=== PATIENT | male | born 1955 | race Caucasian/White ===

== ENCOUNTER 2018-11-12 16:22 | Inpatient (IN) | payer OTHER ==
--- NOTE | 2018-11-12 17:06 | ED ---
Abdominal Pain/Male - HPI Summary HPI Summary: Pt is a 63 y/o M presenting to the ED with a chief complaint of abd pain onset 2 days ago. Pt reports diarrhea, vomiting, and nausea. 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 He also has had to be hospitalized in the past due to his blood pressure crashing. - History of Current Complaint Chief Complaint: EDNauseaVomitDiarrh Stated Complaint: N/V/D Time Seen by Provider: 11/12/18 16:57 Hx Obtained From: Patient Onset/Duration: Sudden Onset, Lasting Days, Still Present Timing: Constant, Lasting Days Severity Initially: Mild Severity Currently: None Pain Intensity: 0 Pain Scale Used: 0-10 Numeric Location: Epigastric Radiates: No Character: Other: - bloating Aggravating Factor(s): Nothing Alleviating Factor(s): Nothing Associated Signs And Symptoms: Positive: Nausea, Vomiting, Diarrhea, Other - low BP - Allergies/Home Medications Allergies/Adverse Reactions: Allergies Allergy/AdvReac Type Severity Reaction Status Date / Time No Known Allergies Allergy Verified 11/12/18 16:31 Home Medications: Home Medications Aspirin [Aspirin EC] 81 mg PO DAILY 11/12/18 [History Confirmed 11/12/18] Atorvastatin* [Lipitor 80 MG*] 80 mg PO BEDTIME 11/12/18 [History Confirmed ] Carvedilol [Coreg] 12.5 mg PO BID 11/12/18 [History Confirmed 11/12/18] Lisinopril 10 mg PO DAILY 11/12/18 [History Confirmed 11/12/18] Loratadine 10 mg PO BEDTIME 11/12/18 [History Confirmed 11/12/18] Pantoprazole TAB * [Protonix TAB*] 40 mg PO DAILY 11/12/18 [History Confirmed ] Spironolactone 25 mg PO DAILY 11/12/18 [History Confirmed 11/12/18] PMH/Surg Hx/FS Hx/Imm Hx Previously Healthy: No Cardiovascular History: Reports: Hx Myocardial Infarction - two History: Reports: Other Problems/Disorders - previous single nephrectomy Infectious Disease History: No Infectious Disease History: Denies: Traveled Outside the [place] in Last 30 Days - Family History Known Family History: Negative: Respiratory Disease - Social History Lives: With Family Hx Substance Use: No Review of Systems Negative: Fever Positive: Abdominal Pain, Vomiting, Diarrhea, Nausea, Other - bloating All Other Systems Reviewed And Are Negative: Yes Physical Exam - Summary Physical Exam Summary: Appearance: The patient is well-nourished in no acute distress and in no acute pain. Pt is afebrile. Skin: The skin is warm and dry and skin color reflects adequate perfusion HEENT: The head is normocephalic and atraumatic. The pupils are equal and reactive. The conjunctivae are clear and without drainage. Nares are patent and without drainage. Mouth reveals dry mucous membranes and the throat is without erythema and exudate. The external ears are intact. The ear canals are patent and without drainage. The tympanic membranes are intact. Neck: The neck is supple with full range of motion and non-tender. There are no carotid bruits. There is no neck vein distension. Respiratory: Chest is non-tender. Lungs are clear to auscultation and breath sounds are symmetrical and equal. Cardiovascular: Heart is regular rate and rhythm. There is no murmur or rub auscultated. There is no peripheral edema and pulses are symmetrical and equal. Abdomen: The abdomen is soft , distenting, and non-tender. There are high pitched bowel sounds heard in all four quadrants and there is no organomegaly palpated. Musculoskeletal: There is no back tenderness noted. Extremities are non-tender with full range of motion. There is good capillary refill. There is no peripheral edema or calf tenderness elicited. Neurological: Patient is alert and oriented to person, place and time. The patient has symmetrical motor strength in all four extremities. Cranial nerves are grossly intact. Deep tendon reflexes are symmetrical and equal in all four extremities. Psychiatric: The patient has an appropriate affect and does not exhibit any anxiety or depression. Triage Information Reviewed: Yes Vital Signs On Initial Exam: Initial Vitals Temp Pulse Resp BP Pulse Ox 96.2 F 106 22 73/53 96 11/12/18 16:23 11/12/18 16:23 11/12/18 16:23 11/12/18 16:23 11/12/18 16:23 Vital Signs Reviewed: Yes Diagnostics - Vital Signs Vital Signs Temp Pulse Resp BP Pulse Ox 11/12/18 16:23 96.2 F 106 22 73/53 96 - Laboratory Result Diagrams: 11/12/18 17:27 11/12/18 17:27 Lab Statement: Any lab studies that have been ordered have been reviewed, and results considered in the medical decision making process. Abdominal Pain Fem Course/Dx - Course Course Of Treatment: Mr. Prado was brought into the emergency department hypotensive. He has had gastroenteritis symptoms for a couple of days with vomiting and diarrhea. He was placed on a monitor, IV was initiated and he was given fluids. This did not help his blood pressure much and his labs returned showing acute renal insufficiency. He states that this happened to him once previously and he responded to hospitalization and IV fluids. He specifically states that his creatinine normally runs in the ones and that it went up to the 4 hours during that episode. He has one kidney having had one removed when he was quite young. The hospice were contacted for admission and rehydration. - Diagnoses Provider Diagnoses: Acute renal failure - Critical Care Time Critical Care Time: 30-74 min Discharge - Sign-Out/Discharge Documenting (check all that apply): Patient Departure - admit - Discharge Plan Condition: Stable Disposition: ADMITTED TO [facility] Referrals: [facility] [Outside] - Billing Disposition and Condition Condition: STABLE Disposition: Admitted to [facility] - Attestation Statements Document Initiated by Scribe: Yes Documenting Scribe: Maryann Greco Provider For Whom Sakshi is Documenting (Include Credential): Beto Borjas MD. Scribe Attestation: Maryann Ortiz, scribed for Beto Borjas MD. on 11/12/18 at 1852. Scribe Documentation Reviewed: Yes Provider Attestation: The documentation as recorded by the Maryann scherer accurately reflects the service I personally performed and the decisions made by me, Beto Borjas MD. Status of Scribe Document: Viewed Consult Consult: 1800 - Spoke with Dr. Sewell about the pt's condition who will be accepting the pt to the hospital for further testing and evaluation.
[2018-11-12] MEDS ORDERED: NS 0.9% 1000 ML* 1,000 ML IV ONE ×2 (17:10→18:13)
[2018-11-12] MEDS ORDERED: Ondansetron INJ* 2 MG/ML VIAL IV ONE (17:26)
[2018-11-12 17:35] LABS: Hematocrit 43 % (42-52); Hemoglobin 14.5 g/dl (14.0-18.0); Mean Corpuscular HGB Conc 34 g/dl (31-36); Mean Corpuscular Hemoglobin 29 pg (27-31); Mean Corpuscular Volume 86 fL (80-94); Red Blood Count 4.98 10^6/ul (4.00-5.40); Red Cell Distribution Width 15 % (10.5-15); White Blood Count 10.1 10^3/ul (3.5-10.8)
[2018-11-12 17:52] LABS: ALT 34 U/L (7-52); AST 29 U/L (13-39); Albumin 4.8 g/dL (3.2-5.2); Albumin/Globulin Ratio 1.4 (1-3); Alkaline Phosphatase 107 U/L (34-104); Anion Gap 13 mmol/L (2-11); BUN/Creatinine Ratio 14.1 (8-20); Blood Urea Nitrogen 66 mg/dL (6-24); C Reactive Protein 9.83 mg/L (<8.01); CO2 Carbon Dioxide 17 mmol/L (22-32); Calcium 8.7 mg/dL (8.6-10.3); Chloride 100 mmol/L (101-111); EGFR African American 15.4 (>60); EGFR Non-African American 12.8 (>60); Globulin 3.4 g/dL (2-4); Glucose 121 mg/dL (70-100); Potassium 3.9 mmol/L (3.5-5.0); Sodium 130 mmol/L (135-145); Total Protein 8.2 g/dL (6.4-8.9)
[2018-11-12 17:53] LABS: Troponin I 0.01 ng/mL (<0.04)
[2018-11-12 17:56] LABS: ABS Basophils 0 10^3/ul (0-0.2); ABS Eosinophils 0.2 10^3/ul (0-0.6); ABS Lymphocytes 1.4 10^3/ul (1.0-4.8); ABS Monocytes 1.6 10^3/ul (0-0.8); ABS Neutrophils 6.9 10^3/ul (1.5-7.7); ABS Nucleated RBC 0 10^3/ul; Eosinophil % 1.8 %; Lymphocyte % 13.4 %; Nucleated Red Blood Cells % 0.1
[2018-11-12] MEDS ORDERED: Acetaminophen TAB* 325 MG PO ONE (18:35)
[2018-11-12] MEDS ORDERED: Ondansetron INJ* 2 MG/ML VIAL IV PRN (19:25)
[2018-11-12] MEDS ORDERED: Acetaminophen TAB* 325 MG PO PRN (19:25)
--- NOTE | 2018-11-12 19:27 | ADMNOTE ---
Subjective Date of Service: 11/12/18 - History and Physical Interval History: HISTORY AND PHYSICAL CHIEF COMPLAINT: Diarrhea HISTORY OF PRESENTING ILLNESS This is a 63 year old Male with history of ID, right nephrectomy at age 14, who now presents to the emergency room because of diarrhea. He reports that about 3 days ago he had a Tuna sandwich, and since then he has been having diarrhea. The diarrhea is loose, non-bloody Bowel movement. This is associated with nausea , vomiting. He is having crampy abdominal pain. He is having about 13 episodes of non-bloody loose BM a day for the past two days. He feels lightheaded, associated with chills. No fever, No chest pain, no shortness of breath. He had nephrectomy at age 14. Through this week's event, he has been making urine- but decreased quantity than baseline. In the emergency room was found to have hypotension, acute kidney injury after which my colleague was called for an admission. PAST MEDICAL HISTORY: Coronary artery disease with ID in 2006, 2013 PAST SURGICAL HISTORY Right nephrectomy at age 14 bilateral rotator cuff surgery Hernia repair undescended testicle surgery SOCIAL HISTORY Lives in [place] Does not smoke No alcohol use FAMILY HISTORY Father: due to diabetes Mother: Breast cancer Review of Systems - Measurements Intake and Output: Intake and Output Last 24 Hours 11/10/18 11/11/18 11/12/18 11/13/18 06:59 06:59 06:59 06:59 Weight 241 lb - Review of Systems Constitutional Symptoms: Negative: Fever Dermatology: Negative: Rash, Skin Lesions HEENT: Negative: Vertigo, Dental Problems Eyes: Negative: Change in Vision, Double Vision Thyroid: Negative: Sweatiness, Constipation Pulmonary: Negative: Cough, Sputum, Wheezing, Shortness of Breath Cardiology: Negative: Chest Pain, Shortness of Breath, Palpitations Gastroenterology: Positive: Abdominal Pain, Nausea, Vomiting, Diarrhea Genital - Urinary: Negative: Dysuria, Hematuria Musculoskeletal: Negative: Joint Pain, Arthritis Hematologic/Lymphatic: Negative: Anemia Neurology: Negative: Headache, Migraines, Change in Vision, Hx of Stroke\TIA Psychiatry: Negative: Depression, Anxiety Objective Active Medications: Acetaminophen (Tylenol Tab*) 650 mg PO Q6H PRN PRN Reason: FEVER/PAIN Aspirin (Aspirin Ec Tab*) 81 mg PO DAILY [facility] Atorvastatin Calcium (Lipitor*) 80 mg PO BEDTIME [facility] Heparin Sodium (Porcine) (Heparin Vial(*)) 5,000 units SUBCUT Q12HR [facility] Loratadine (Claritin Tab(Nf)) 10 mg PO BEDTIME [facility] Ondansetron HCl (Zofran Inj*) 4 mg IV Q6H PRN PRN Reason: NAUSEA Pantoprazole Sodium (Protonix Tab*) 40 mg PO DAILY [facility] Vital Signs - 8 hr 11/12/18 11/12/18 11/12/18 16:23 16:59 17:00 Temperature 96.2 F Pulse Rate 106 92 97 Respiratory 22 16 25 Rate Blood Pressure 73/53 83/51 (mmHg) O2 Sat by Pulse 96 97 97 Oximetry 11/12/18 11/12/18 11/12/18 17:01 17:38 18:00 Temperature Pulse Rate 88 78 77 Respiratory 17 13 13 Rate Blood Pressure 75/51 (mmHg) O2 Sat by Pulse 96 95 95 Oximetry 11/12/18 11/12/18 11/12/18 18:05 18:35 19:00 Temperature Pulse Rate 75 70 64 Respiratory 16 15 12 Rate Blood Pressure 68/50 78/47 (mmHg) O2 Sat by Pulse 95 96 98 Oximetry 11/12/18 19:10 Temperature Pulse Rate 67 Respiratory 14 Rate Blood Pressure 87/51 (mmHg) O2 Sat by Pulse 97 Oximetry Appearance: well developed, well nourished lying in ER stretcher not in distress Eyes: PERRLA, - - no nystagmus Ears/Nose/Mouth/Throat: - - oral mucosa is dry, no orpharyngeal erythema Neck: NL Appearance and Movements; NL JVP, Trachea Midline Respiratory: Clear to Auscultation, Clear to Percussion Cardiovascular: NL Sounds; No Murmurs; No JVD, RRR Abdominal: No Hepatosplenomegaly, - - Hyperactive bowel sounds, abdomen soft, nondistended, no tenderness.No flank tenderness Extremities: No Edema, No Clubbing, Cyanosis Skin: No Rash or Ulcers, - - poor skin turgor Neurological: Alert and Oriented x 3, NL Sensation, NL Muscle Strength and Tone Result Diagrams: 11/12/18 17:27 11/12/18 17:27 Assess/Plan/Problems-Billing Assessment: - Patient Problems (1) ARABELLA (acute kidney injury) Current Visit: Yes Status: Acute Code(s): N17.9 - ACUTE KIDNEY FAILURE, UNSPECIFIED SNOMED Code(s): 02214663 Comment: ARABELLA in patient with right nephrectomy Due to dehydration, will give IV fluids ordered CT abdomen and pelvis to check for hydronephrosis. hold lisinopril, spironolactone mildly acidotic- will monitor, if does not improve may require dialysis. (2) Nausea vomiting and diarrhea Current Visit: Yes Status: Acute Code(s): R11.2 - NAUSEA WITH VOMITING, UNSPECIFIED; R19.7 - DIARRHEA, UNSPECIFIED SNOMED Code(s): 1378496 Comment: thea gastroeneteritis. IV hydration, clear liquid diet, supportive care stool cdiff sent, stool WBC and culture ordered. (3) Hypotension Current Visit: Yes Status: Acute Comment: due to dehydration, will give IV fluids. Hold home dose antihypertensives. (4) CAD (coronary artery disease) Current Visit: Yes Status: Acute Code(s): I25.10 - ATHSCL HEART DISEASE OF [place] CORONARY ARTERY W/O ANG PCTRS SNOMED Code(s): 57664976 Comment: continue aspirin, statin hold home dose: coreg, lisinopril, spironolactone Status and Disposition: Assessment and plan discussed with patient Additional management as course progresses, per discretion of the daytime rounding hospitalist Medications/Allergies Medications: Home Medications Medication Instructions Recorded Confirmed Type Aspirin [Aspirin EC] 81 mg PO DAILY 11/12/18 11/12/18 History Atorvastatin* [Lipitor 80 MG*] 80 mg PO BEDTIME 11/12/18 11/12/18 History Carvedilol [Coreg] 12.5 mg PO BID 11/12/18 11/12/18 History Lisinopril 10 mg PO DAILY 11/12/18 11/12/18 History Loratadine 10 mg PO BEDTIME 11/12/18 11/12/18 History Pantoprazole TAB * [Protonix TAB*] 40 mg PO DAILY 11/12/18 11/12/18 History Spironolactone 25 mg PO DAILY 11/12/18 11/12/18 History Allergies/Adverse Reactions: Allergies Allergy/AdvReac Type Severity Reaction Status Date / Time No Known Allergies Allergy Verified 11/12/18 16:31
[2018-11-12] MEDS ORDERED: NS 0.9% 1000 ML* 1,000 ML IV SCH (19:30)
[2018-11-12 19:46] LABS: Urine Appearance Cloudy; Urine Bilirubin Negative (Negative); Urine Blood Negative (Negative); Urine Color Yellow; Urine Glucose Negative (Negative); Urine Ketones Negative (Negative); Urine Nitrite Negative (Negative); Urine Protein Negative (Negative); Urine Specific Gravity 1.002 (1.010-1.030); Urine Urobilinogen Negative (Negative)
[2018-11-12 21:50] LABS: BUN/Creatinine Ratio 16.2 (8-20); Calcium 7.7 mg/dL (8.6-10.3); Potassium 3.9 mmol/L (3.5-5.0)
[2018-11-12 22:45] LABS: Magnesium 1.4 mg/dL (1.9-2.7); Phosphorus 5.7 mg/dL (2.5-5.0)
[2018-11-12 22:51] LABS: Salicylate < 2.50 mg/dL (<30)
[2018-11-12] MEDS ORDERED: Sodium Bicarbonate 8.4% IV* 75 MEQ in NS 0.45% 1000 ML BAG* 1,000 ML IV SCH (23:30)
[2018-11-12] MEDS ORDERED: cefTRIAXone(*) 1 GM in NS 0.9% 50 ML* 50 ML IVPB SCH (23:30)
[2018-11-12] MEDS: Cetirizine* 10 MG TAB PO SCH (23:57)
[2018-11-12] MEDS: Atorvastatin* 80 MG TAB PO SCH (23:57)
[2018-11-12] MEDS: Heparin VIAL(*) 5000 UNITS/ML VIAL (FIVE THOUSAND) SUBCUT SCH (23:58)
--- NOTE | 2018-11-13 00:47 | PN ---
Hospitalist Progress Note Date of Service: 11/13/18 He reports no use of NSAID, he does use aspirin 81mg daily, but has not taken any extra dose, no recent changes to medications, no ingestion of anti-freeze or other unusual substances. I also spoke with Dr. Lopez, for a consultation. At this point, we will give sodium bicarbonate infusion, monitor electrolytes, currently no need for urgent dialysis. repeat blood work has been ordered for 1:00 AM.
[2018-11-13] MEDS ORDERED: Magnesium Sulfate 2 GM IV* 2 GM/50 ML BAG IVPB ONE (00:49)
[2018-11-13 01:49] LABS: Calcium 7.8 mg/dL (8.6-10.3); Chloride 105 mmol/L (101-111); Sodium 131 mmol/L (135-145)
[2018-11-13 01:51] LABS: Anion Gap 15 mmol/L (2-11); CO2 Carbon Dioxide 11 mmol/L (22-32)
[2018-11-13 01:54] LABS: BUN/Creatinine Ratio 17.7 (8-20); Blood Urea Nitrogen 72 mg/dL (6-24); EGFR African American 18.1 (>60); Glucose 86 mg/dL (70-100)
[2018-11-13] MEDS ORDERED: Sodium Bicarbonate 8.4% IV* 150 MEQ in NS 0.45% 1000 ML BAG* 1,000 ML IV SCH (02:30)
[2018-11-13 02:38] LABS: Potassium Redraw 3.7 mmol/L (3.5-5.0)
[2018-11-13] MEDS ORDERED: D5W 1000 ML BAG* 850 ML with Sodium Bicarbonate 8.4% IV* 150 MEQ IV SCH ×2 (03:00)
[2018-11-13] MEDS ORDERED: Sodium Bicarbonate 8.4% IV* 150 MEQ in D5W 1000 ML BAG* 850 ML IV SCH (03:00)
[2018-11-13] MEDS ORDERED: D5W 1000 ML BAG* 1,000 ML IV SCH (03:00)
[2018-11-13 05:46] LABS: Urine Creatinine Concentration 343.74 mg/dL
[2018-11-13 07:38] LABS: BUN/Creatinine Ratio 19.7 (8-20); EGFR African American 21.2 (>60); EGFR Non-African American 17.5 (>60); Potassium 3.2 mmol/L (3.5-5.0)
[2018-11-13] MEDS: Pantoprazole TAB * 40 MG TAB PO SCH (08:49)
[2018-11-13] MEDS: Aspirin EC TAB* 81 MG TAB.EC PO SCH (08:49)
[2018-11-13] MEDS: Heparin VIAL(*) 5000 UNITS/ML VIAL (FIVE THOUSAND) SUBCUT SCH ×2 (08:49→21:02)
[2018-11-13] MEDS ORDERED: NS 0.9% 500 ML* 500 ML IV ONE (08:58)
[2018-11-13] MEDS ORDERED: Potassium Chlor TAB* 20 MEQ TAB.ER PO STA (09:00)
[2018-11-13 09:52] LABS: Magnesium 1.4 mg/dL (1.9-2.7)
[2018-11-13] MEDS: Lactated Ringers 1000 ML Bag* 1,000 ML IV SCH (10:30)
[2018-11-13 11:08] LABS: Ur Urea Nitrogen Concentration 379 mg/dL; Urine Creatinine Concentration 61.99 mg/dL; Urine Sodium Concentration < 18 mmol/L
[2018-11-13] MEDS ORDERED: Magnesium Sulf 4 GM/100 ML IV* 4,000 MG/100 ML BAG IVPB ONE (13:30)
[2018-11-13 14:29] LABS: Urine Chloride Concentration < 22 mmol/L
--- NOTE | 2018-11-13 18:09 | PN ---
Subjective Date of Service: 11/13/18 Interval History: Pt seen and examined. Meds and labs reviewed. CC: Mentions that N/V has resolved and only had one loose BM this AM ROS: Denied [place]/dizziness, F/C, N/V, CP, SOB, increased cough, sputum production , abd pain, constipation, dysuria, myalgias, arthralgias, throat pain, and new skin lesions. The rest of the 14 point ROS are unremarkable. PHYSICAL EXAM: GEN APPEARANCE: Awake, not in acute distress HEENT: NC/AT, PERRLA, moist oral mucosa, (-) throat erythema NECK: Soft, supple, (-) cervical LAD, (-)JVD HEART: S1S2 WNL, RRR, No MRG CHEST: CTA, BL, GAE, No W/R/R ABD: Soft, ND/NT, NABS 4x Q EXT: No C/C/E SKIN: Warm to touch, good skin turgor PSYCH: No active psychosis, hallucinations, depression, SI/HI Objective Active Medications: Acetaminophen (Tylenol Tab*) 650 mg PO Q6H PRN PRN Reason: FEVER/PAIN Aspirin (Aspirin Ec Tab*) 81 mg PO DAILY [facility] Last Admin: 11/13/18 08:49 Dose: 81 mg Atorvastatin Calcium (Lipitor*) 80 mg PO BEDTIME [facility] Last Admin: 11/12/18 23:57 Dose: 80 mg Cetirizine HCl (Zyrtec*) 10 mg PO BEDTIME [facility] Last Admin: 11/12/18 23:57 Dose: 10 mg Heparin Sodium (Porcine) (Heparin Vial(*)) 5,000 units SUBCUT Q12HR [facility] Last Admin: 11/13/18 08:49 Dose: 5,000 units Ceftriaxone Sodium 1 gm/ (Sodium Chloride) 50 mls @ 200 mls/hr IVPB Q24H [facility] Last Admin: 11/12/18 23:58 Dose: 200 mls/hr Lactated Ringer's (Lactated Ringers 1000 Ml Bag*) 1,000 mls @ 100 mls/hr IV .INITIAL RATE [facility] Last Admin: 11/13/18 10:30 Dose: 100 mls/hr Ondansetron HCl (Zofran Inj*) 4 mg IV Q6H PRN PRN Reason: NAUSEA Pantoprazole Sodium (Protonix Tab*) 40 mg PO DAILY [facility] Last Admin: 11/13/18 08:49 Dose: 40 mg Vital Signs - 8 hr 11/13/18 11/13/18 11:21 15:36 Temperature 97.3 F 98.4 F Pulse Rate 79 72 Respiratory 20 20 Rate Blood Pressure 116/73 98/66 (mmHg) O2 Sat by Pulse 99 99 Oximetry Oxygen Devices in Use Now: None Result Diagrams: 11/12/18 17:27 11/13/18 07:15 Microbiology and Other Data: Microbiology 11/12/18 21:11 Stool Gross Appearance - Final Stool C. difficile DNA Amplification - Final 027 Presumptive NEGATIVE Toxigenic C.diff NEGATIVE Stool Lactoferrin - Final 11/12/18 21:11 Stool Occult Blood ([facility]) - Final Stool Assess/Plan/Problems-Billing Assessment: - Patient Problems (1) Metabolic acidosis Current Visit: Yes Status: Acute Code(s): E87.2 - ACIDOSIS SNOMED Code(s) : 88982818 Comment: #NAGMA: -Relatively normal anion gap (most sources consider 16-18 as cut off instead of 12); given this unnecessary to calculate delta-delta -My initial impression was due to diarrhea, probably secretory in addition to early renal failure causing impaired generation of ammonia -Dr. Lopez mentions while the above is true, he is concerned that the level of bicarb was so low that she did not even have contraction alkalosis -pCO2 = 1.5 (15) + 8 = 30.5 +/-2, which is close to observed pCO 2 =26; although this was at the time she was on bicarb gtt; -Will obtain Urine potassium levels to calculate for Urine Anion Gap (UAG)Dr. Lopez agrees -In addition, Dr. Lopez advised to obtain urine Magnesium and Urine K+ which has both been ordered on admission -Urine lytes pending (2) Nausea vomiting and diarrhea Current Visit: Yes Status: Acute Code(s): R11.2 - NAUSEA WITH VOMITING, UNSPECIFIED; R19.7 - DIARRHEA, UNSPECIFIED SNOMED Code(s): 9744291 Comment: -Consistent w/gastroenteritis -Pt associates this upon eating a 3-day old left-over tuna sandwhich w/locke, his mother made that she kept in the fridge -Possibility of S. aureaus vs viral gastroenteritis vs. secretory types? -(-)C. 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 Lopez (4) DVT prophylaxis Current Visit: Yes Status: Acute Code(s): JJG4386 - SNOMED Code(s): 219263388 Comment: -Continue Heparin SQq12H Status and Disposition: -For PT eval -Hospitalist colleaguesplease touch base w/Dr. Lopez; please call me if w/ questions
[2018-11-13] MEDS: Cetirizine* 10 MG TAB PO SCH (21:02)
[2018-11-13] MEDS: Atorvastatin* 80 MG TAB PO SCH (21:02)
[2018-11-14] MEDS: Lactated Ringers 1000 ML Bag* 1,000 ML IV SCH (00:24)
--- NOTE | 2018-11-14 08:15 | PN ---
Subjective Date of Service: 11/14/18 Interval History: HD # 3 on 11/14 63 yo M with PMH CAD s/p prior NE, s/p R nephrectomy distant as a child who presented with acute onsent N/V/D and found to have hypotension, ARABELLA, hypoNA, and NAGMA. Overnight no acute events. VS 124-143/59-65, afebrile, satting well on RA, HR 64 , voiding freely, notably with 2 LUOP in this hospitalization, 1 small liquid stool overnight. Labs not collected this AM, ordered for BMP This morning seen with his foster mom at bedside, he is feeling much better and eager to advance his diet. Last stool was overnight, small and soft but improving. Denies abdominal pain, current nausea, no CP, no SOB. Discussed w Dr. Lopez who feels comfortable sending home with FU in one week. Objective Active Medications: Acetaminophen (Tylenol Tab*) 650 mg PO Q6H PRN PRN Reason: FEVER/PAIN Aspirin (Aspirin Ec Tab*) 81 mg PO DAILY [facility] Last Admin: 11/13/18 08:49 Dose: 81 mg Atorvastatin Calcium (Lipitor*) 80 mg PO BEDTIME [facility] Last Admin: 11/13/18 21:02 Dose: 80 mg Cetirizine HCl (Zyrtec*) 10 mg PO BEDTIME [facility] Last Admin: 11/13/18 21:02 Dose: 10 mg Heparin Sodium (Porcine) (Heparin Vial(*)) 5,000 units SUBCUT Q12HR [facility] Last Admin: 11/13/18 21:02 Dose: 5,000 units Ondansetron HCl (Zofran Inj*) 4 mg IV Q6H PRN PRN Reason: NAUSEA Pantoprazole Sodium (Protonix Tab*) 40 mg PO DAILY [facility] Last Admin: 11/13/18 08:49 Dose: 40 mg Vital Signs - 8 hr 11/14/18 11/14/18 00:16 03:50 Temperature 97.7 F 97.4 F Pulse Rate 64 66 Respiratory 20 19 Rate Blood Pressure 143/59 124/65 (mmHg) O2 Sat by Pulse 99 98 Oximetry Oxygen Devices in Use Now: None Appearance: Pleasant man in NAD Eyes: No Scleral Icterus, PERRLA Ears/Nose/Mouth/Throat: NL Teeth, Lips, Gums, Mucous Membranes Moist Neck: NL Appearance and Movements; NL JVP Respiratory: Symmetrical Chest Expansion and Respiratory Effort, Clear to Auscultation Cardiovascular: NL Sounds; No Murmurs; No JVD, RRR Abdominal: NL Sounds; No Tenderness; No Distention Lymphatic: No Cervical Adenopathy Extremities: No Edema Skin: No Rash or Ulcers Neurological: Alert and Oriented x 3 Result Diagrams: 11/12/18 17:27 11/14/18 09:26 Microbiology and Other Data: Microbiology 11/12/18 21:11 Stool Gross Appearance - Final Stool C. difficile DNA Amplification - Final 027 Presumptive NEGATIVE Toxigenic C.diff NEGATIVE Stool Lactoferrin - Final 11/12/18 21:11 Stool Occult Blood ([facility]) - Final Stool Assess/Plan/Problems-Billing Assessment: 63 yo M with PMH CAD s/p prior NE, s/p R nephrectomy distant as a child who presented with acute onset N/V/D and found to have hypotension, ARABELLA, hypoNA, and NAGMA. Resolved with fluid resuscitation. 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 Lopez, Cr improving and stable for d/c (2) Nausea vomiting and diarrhea Current Visit: Yes Status: Acute Code(s): R11.2 - NAUSEA WITH VOMITING, UNSPECIFIED; R19.7 - DIARRHEA, UNSPECIFIED SNOMED Code(s): 2987040 Comment: -Consistent w/gastroenteritis -Pt associates this upon eating a 3-day old left-over tuna sandwhich w/locke, his mother made that she kept in the fridge -Possibility of S. aureaus vs viral gastroenteritis vs. secretory types? -(-)C. diff -(+)Fecal lactoferrin/WBC -(-)Hemoccult -Above consistent w/non-invasive pathogens along w/clinical course and rapid resolution (3) Hypotension Current Visit: Yes Status: Acute Comment: Hold home dose antihypertensives x3 days onr eturn (4) Metabolic acidosis Current Visit: Yes Status: Acute Code(s): E87.2 - ACIDOSIS SNOMED Code(s) : 10740225 Comment: -Relatively normal anion gap (most sources consider 16-18 as cut off instead of 12); given this unnecessary to calculate delta-delta -My initial impression was due to diarrhea, probably secretory in addition to early renal failure causing impaired generation of ammonia -Dr. Lopez mentions while the above is true, he is concerned that the level of bicarb was so low that she did not even have contraction alkalosis -pCO2 = 1.5 (15) + 8 = 30.5 +/-2, which is close to observed pCO 2 =26; although this was at the time she was on bicarb gtt; -In addition, Dr. Lopez advised to obtain urine Magnesium and Urine K+ which has both been ordered on admission-send out -Urine sodium < 20 (5) CAD (coronary artery disease) Current Visit: Yes Status: Acute Code(s): I25.10 - ATHSCL HEART DISEASE OF [place] CORONARY ARTERY W/O ANG PCTRS SNOMED Code(s): 45028175 Comment: continue aspirin, statin hold home dose: coreg, lisinopril, spironolactone (6) DVT prophylaxis Current Visit: Yes Status: Acute Code(s): XCL1301 - SNOMED Code(s): 290818341 Comment: -Continue Heparin SQq12H Status and Disposition: -DC to home
[2018-11-14] MEDS: Pantoprazole TAB * 40 MG TAB PO SCH (09:28)
[2018-11-14] MEDS: Heparin VIAL(*) 5000 UNITS/ML VIAL (FIVE THOUSAND) SUBCUT SCH (09:28)
[2018-11-14] MEDS: Aspirin EC TAB* 81 MG TAB.EC PO SCH (09:28)
[2018-11-14 09:45] VITALS: BP 120/64
[2018-11-14 10:21] LABS: BUN/Creatinine Ratio 20.5 (8-20); Calcium 8.5 mg/dL (8.6-10.3); EGFR African American 54.8 (>60); EGFR Non-African American 45.3 (>60); Magnesium 2.4 mg/dL (1.9-2.7); Potassium 3.5 mmol/L (3.5-5.0)
--- NOTE | 2018-11-15 01:10 | DS ---
CC: Dr. Lopez * DISCHARGE SUMMARY: DATE OF ADMISSION: 11/12/18 DATE OF DISCHARGE: 11/14/18 PRIMARY DIAGNOSES: 1. Nausea and vomiting secondary to gastroenteritis. 2. Acute kidney injury. 3. Non-anion gap metabolic acidosis. SECONDARY DIAGNOSES: 1. Coronary artery disease with history of myocardial infarction and hypertension. 2. 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 MEDICATIONS ON THE DAY OF DISCHARGE: As follows: 1. Aspirin 81 mg p.o. daily. 2. Atorvastatin 80 mg p.o. at bedtime. 3. Carvedilol 12.5 mg p.o. b.i.d. 4. Loratadine 10 mg p.o. at bedtime. 5. Pantoprazole 40 mg p.o. daily. 6. Ondansetron 4 mg p.o. q.6 hours p.r.n. for nausea. Changes to medication include the addition of p.r.n. ondansetron as well as the temporary holding of his home dose lisinopril as well as the temporary holding of home dose spironolactone. He may resume home dose lisinopril and spironolactone when his nausea and vomiting has improved. He is counseled to do so on discharge. HISTORY OF PRESENT ILLNESS AND HOSPITAL COURSE: This is a 63-year-old male with the above past medical history who presented to the emergency room with 3 days of nausea, vomiting, and diarrhea. He had had about 10 to 12 episodes of diarrhea daily for the past 2 days. He felt lightheaded with no associated fever or chills, chest pain or shortness of breath. He took his blood pressure at home and it was noted to be 80/50, so he presented to the emergency room. Of note, he did have a nephrectomy at age 14. He reports that on admission he is making urine. In the emergency room, he was found to be hypotensive to the mid 80s/50s with a normal heart rate, afebrile, sating well on room air, and his labs were notable for creatinine elevation at 4.68, sodium of 130, BUN of 66, chloride 100, bicarb of 17, glucose of 121. LFTs were normal. Lipase was normal. H and H were normal. He had a lactic acid drawn that was normal at 1.1. He had an anion gap elevated to 13 at that time. He was admitted to the hospitalist service for acute kidney injury and anion gap metabolic acidosis at that time. While on the hospital floor, his hospital course by problem is as follows: 1. Acute kidney injury. This was thought to be secondary to prerenal causes from his GI losses from his nausea and vomiting. He was given IV fluids. He was briefly placed on bicarb for his low bicarb, and he was supported with potassium and magnesium electrolyte replenishing. His creatinine improved from 4.68 to 1.56 on the day of discharge and he has been making excellent urine throughout without any complications. Dr. Lopez was consulted given his history of right partial nephrectomy and he has ordered send-away tests to determine the exact mechanism of his acid base status and response to his GI losses. 2. Nausea, vomiting, and diarrhea. This is thought to be secondary to acute gastroenteritis, either viral or food poisoning. He had negative stool testing , although positive lactoferrin. He was given Zofran and loperamide and treated supportively. His symptoms resolved rapidly. Within the first 48 hours of his hospitalization, he advanced his diet to tolerating a regular diet on the day of discharge and had no further problems. 3. His anion gap and then non-anion gap metabolic acidosis. His hospital course was complicated by low carbon dioxide as low as 11. As noted, Dr. Lopez was consulted who ordered send off urine tests to determine whether there was a RTA involved with ongoing GI losses and will follow up with the patient as an outpatient. The patient is instructed to make appointment with Dr. Lopez in a week to allow him for urine send off test to return. His acidosis has largely resolved on the day of discharge. 4. History of hypertension. The patient has home medications carvedilol, spironolactone, and lisinopril. His spironolactone and lisinopril are held on the day of discharge until he is able to p.o. normally and his carvedilol was restarted. He has no problems with hypertension. 5. History of CAD. He is maintained on his aspirin, statin, and was restarted on his beta keren on discharge. There are no other active problems managed during this hospitalization. PHYSICAL EXAMINATION ON THE DAY OF DISCHARGE: His vital signs on the day of discharge: His blood pressure is 124/65, his heart rate is 66, he is satting 98 % on room air, his respiration rate is in the mid teens, he is afebrile. He is a well-appearing man, lying in bed, in no acute distress. He has moist mucous membranes. His lungs are clear to auscultation bilaterally. His heart rate is regular rate and rhythm with no murmurs, rubs, or gallops. His belly is soft, nontender, and nondistended with normoactive bowel sounds. He has no edema. No cervical lymphadenopathy. He is alert and oriented x3. DIAGNOSTIC STUDIES/LAB DATA: His labs on day of discharge are notable for a BMP of sodium 139, potassium 3.5, chloride 114, bicarb 17, BUN 32, and creatinine 1.56. CBC was done prior on 11/13/18 which was within normal limits. Micro done during this hospitalization was notable for a negative C. diff, a negative shiga toxin, a negative stool culture, and a positive stool lactoferrin, and negative fecal occult. Imaging done in this hospitalization was notable for a CT abdomen and pelvis which was done on 11/12/18 which showed status post right nephrectomy, normal left kidney, no hydronephrosis. He has mild enlargement of the prostate which is an incidental finding and he has gallstones that are noted, calcified, in the gallbladder with no evidence of cholecystitis. REVIEW OF SYSTEMS: Review of systems was done on the day of discharge was fully negative. The patient denies chest pain, shortness of breath, headaches, nausea, or vomiting. Last bowel movement was the day before discharge, was noted to be soft, not liquid diarrhea. No musculoskeletal pain. No rashes. TIME SPENT: Thirty-five minutes were spent in the planning of this discharge with over half of that spent at the bedside counselling the patient and his family, whom he will return home with. They have no further questions. They understand the followup plan which is to follow up with Dr. Lopez as the patient did not have consistent primary care doctor. This discharge summary will be CC'd to Dr. Lopez as well as a referral will be made to a primary care provider by our case management team. He is to follow up on postdischarge: 1. ARABELLA. We will repeat BMP to ensure that creatinine approaches baseline which was normal on the day of discharge. It was 1.5 down from 4.68, has been trending nicely. 2. Hypotension. When the patient is tolerating normal diet and feeling back to normal, he was instructed to restart lisinopril and spironolactone. Please ensure that the patient has stable electrolytes in the presence of doing so and ensure that his home blood pressure medications are restarted at a reasonable time. There are no other active issues managed in this hospitalization and no further followup items. Please do not hesitate to contact us if there are questions in the care of this patient. [id number]/[facility] #: [id number] RADHA
--- NOTE | 2018-11-15 13:42 | CONS ---
NEPHROLOGY CONSULTATION: DATE OF CONSULT: ADDENDUM: His anion gap has been minimally elevated during the course of this admission. His maximum anion gap was 13 on admission and got as high as 15 and has come down with buffering. None of the usual culprits for increased anion gap acidosis seemed very compelling. His lactic acid was 1.1. He had no ketones in his urine. His salicylate level was less than 2.5. We have no history of alcohol intake or ethylene glycol intake. While again renal insufficiency would be a usual culprit with regard to an increased anion gap acidosis, his time course is a little short for that. At the present time, his acidosis is being buffered. His potassium abnormality is being corrected. He has had magnesium replaced. I suggest that it would be reasonable to go ahead and let him go home and I will see him as an outpatient to continue the investigation once additional laboratory evaluations are back. I did discuss the case with Dr. Mead and Dr. Jaime. [id number]/[facility] #: [id number] [facility]
--- NOTE | 2018-11-15 15:55 | CONS ---
ADDENDUM NOW INCLUDED ON THIS REPORT CC: Dr. Quiñones, [facility] * NEPHROLOGY CONSULTATION: DATE OF CONSULT: 11/15/18 HISTORY OF PRESENT ILLNESS: I had originally seen Mr. Prado on 11/13/18, but had delayed this dictation in anticipation of some of the additional laboratory tests coming back. Mr. 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 He has a history of myocardial infarction x2 and has undergone balloon angioplasty and stent placement. He has a history of gallstones in the past. He has had about a 3 to 4- day history of diarrhea. He had some severe vomiting at the initiation of this illness, but none since. He had some nausea continuing. He has had some anorexia. He had no orthostatic dizziness, but he did feel a little lightheaded most of the time, but position was not a component. He had no chest pain, no shortness of breath. He did have mid epigastric abdominal pain near the initiation of this illness. He had no dysuria, frequency, or urgency. PAST SURGICAL HISTORY: He has had bilateral rotator cuff surgery. 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 MEDICATIONS: Admission medications included: 1. Aspirin 81 mg daily. 2. Atorvastatin 80 mg daily. 3. Carvedilol 12.5 mg b.i.d. 4. Lisinopril 10 mg daily. 5. Loratadine 10 mg daily. 6. Pantoprazole 40 mg daily. 7. Spironolactone 25 mg daily. Of significance, this was started by his erp technical lead around the time of one of his myocardial infarctions. He does not recognize that it was used for hypokalemia. SOCIAL HISTORY: He does not use tobacco or alcohol. REVIEW OF SYSTEMS: Significant for peptic ulcer disease. There are no visual disturbances. No hearing problems. No swallowing difficulties. No arthropathies. PHYSICAL EXAM: He is a well-developed, well-nourished white gentleman. At the time that I saw him, his blood pressure was 143/59 with a pulse of 64, respirations of 20. On HEENT, he is anicteric. His extraocular muscles are intact. His mucous membranes are moist. There was no jugular venous distention. His chest was clear. The heart revealed a regular rhythm without murmurs. The abdomen was significant and there was no right upper quadrant tenderness. I could not feel his liver margin. There was no other abdominal tenderness. No organomegaly. Bones, joints, extremities revealed no cyanosis, clubbing, or edema. DIAGNOSTIC STUDIES/LAB DATA: A review of his laboratory studies reveals a white count of 10.1, hemoglobin of 14.5. A pH of 7.33, pCO2 26, pO2 of 89. Sodium was 130 on admission with a potassium of 3.9, chloride 100, total CO2 17 , creatinine 4.68 with a BUN of 66. Bilirubin of 1.8. During his hospitalization, his creatinine fell to 3.2. At that time, his acidosis had worsened to a total CO2 of 15. His magnesium level was initially suppressed at 1.4. His did receive magnesium supplementation. Urinalysis at the time of admission was essentially unremarkable with a specific gravity of 1.02, urinary sodium concentration of 18, urinary creatinine of 61.99. I am awaiting urinary potassium and magnesium levels. DISCUSSION: Clearly, he has an episode of acute renal insufficiency on the basis of prerenal state secondary to his diarrhea. It is little perplexing about the nature of his acidosis. Ordinarily, one would expect in this setting to have a contraction alkalosis, not an acidosis. It is possible under certain circumstances to lose bicarbonate through the diarrheal source, but this usually occurs where there are major losses from either biliary secretions or pancreatic secretions or perhaps even villous adenoma. Unfortunately, we do not have previous electrolytes to evaluate. He has had a colonoscopy a few years ago, which revealed some colonic polyps. One would have thought that if there was a villous adenoma, some evidence would have been found at that time. There is some question as to whether or not his renal insufficiency could have produced this level of acidosis because of changes in distal ammonia production. I am a little reluctant to accept that as his bicarbonate level at one point got down to as low as 11; obviously, there would be the question of one of the renal tubular acidoses. It is unlikely to be a type 4 renal tubular acidosis as he was hypokalemic instead of hyperkalemic and additionally distal renal tubular acidosis is excluded by his urinary pH of 5. It would be a little unusual to make the diagnosis of a proximal renal tubular acidosis at the age of 63. ADDENDUM: His anion gap has been minimally elevated during the course of this admission. His maximum anion gap was 13 on admission and got as high as 15 and has come down with buffering. None of the usual culprits for increased anion gap acidosis seemed very compelling. His lactic acid was 1.1. He had no ketones in his urine. His salicylate level was less than 2.5. We have no history of alcohol intake or ethylene glycol intake. While again renal insufficiency would be a usual culprit with regard to an increased anion gap acidosis, his time course is a little short for that. At the present time, his acidosis is being buffered. His potassium abnormality is being corrected. He has had magnesium replaced. I suggest that it would be reasonable to go ahead and let him go home and I will see him as an outpatient to continue the investigation once additional laboratory evaluations are back. I did discuss the case with Dr. Mead and Dr. Jaime. [id number]/[facility] #: [id number] Ever- [id number]/[facility] #: [id number] RADHA
== END 2018-11-14 15:30 | disposition home or self-care (01) | DRG 249 ==
LOC: ED 16:22 → MED 19:58
PROVIDERS: ADMIT Internal Medicine; ATTEND Internal Medicine
DX: K52.9 Noninfective gastroenteritis and colitis, unspecified (principal); N17.9 Acute kidney failure, unspecified; E87.2 Acidosis; E87.1 Hypo-osmolality and hyponatremia; I95.9 Hypotension, unspecified; E83.42 Hypomagnesemia; I11.9 Hypertensive heart disease without heart failure; E86.0 Dehydration; I25.10 Atherosclerotic heart disease of native coronary artery without angina pectoris; I25.2 Old myocardial infarction; Z90.5 Acquired absence of kidney; Z83.3 Family history of diabetes mellitus; Z80.3 Family history of malignant neoplasm of breast; Z79.01 Long term (current) use of anticoagulants; Z79.1 Long term (current) use of non-steroidal anti-inflammatories (NSAID); Z79.82 Long term (current) use of aspirin; Z79.899 Other long term (current) drug therapy; Z95.5 Presence of coronary angioplasty implant and graft; K27.9 Peptic ulcer, site unspecified, unspecified as acute or chronic, without hemorrhage or perforation
CPT/HCPCS: 36415; 36600; 71046; 74176; 80048; 80053; 80329; 81003; 82272; 82436; 82570; 82803; 83605; 83630; 83690; 83735; 83930; 83935; 84100; 84300; 84484; 84540; 85025; 86140; 87045; 87046; 87077; 87493; 87899; 90686; 99284; A9270-GY; G0480; J0696; J1644; J2405; J3475; J7060

== ENCOUNTER 2020-02-02 06:37 | Emergency (ER) | payer OTHER ==
--- NOTE | 2020-02-02 06:44 | ED ---
Respiratory - HPI Summary HPI Summary: 65 y/o M brought in by EMS to [facility] c/o worsening shortness of breath for a couple weeks. Patient is not a good historian. He reports shortness of breath worse with exertion for 2 weeks. It is not particularly worse today than before. His mother called ambulance because she was worried. No syncope, chest pain, nausea, vomiting. Hx coronary disease. Hx MS x2, last time in 2014. No hx heart rhythm problems or pacemaker. - History of Current Complaint Stated Complaint: SOB PER EMT Hx Obtained From: Patient Onset/Duration: Lasting Weeks - 2, Still Present Timing: Constant Aggravating Factor(s): Exertion Alleviating Factor(s): Nothing Associated Signs and Symptoms: Negative - syncope, chest pain, nausea, vomiting - Allergy/Home Medications Allergies/Adverse Reactions: Allergies Allergy/AdvReac Type Severity Reaction Status Date / Time No Known Allergies Allergy Verified 11/12/18 16:31 Home Medications: Home Medications Aspirin [Aspirin EC] 81 mg PO DAILY 11/12/18 [History Confirmed 02/02/20] Carvedilol [Coreg] 25 mg PO BID 11/12/18 [History Confirmed 02/02/20] Loratadine 10 mg PO DAILY 11/12/18 [History Confirmed 02/02/20] Pantoprazole TAB * [Protonix TAB*] 40 mg PO DAILY 11/12/18 [History Confirmed ] Diclofenac 1% GEL (NF) [Voltaren 1% GEL (NF)] 1 applic TOPICAL BID PRN 02/02/20 [History Confirmed 02/02/20] Escitalopram * [Lexapro 10 mg (NF)] 10 mg PO DAILY 02/02/20 [History Confirmed 02/02/20] Ezetimibe TAB* [Zetia TAB*] 10 mg PO DAILY 02/02/20 [History Confirmed 02/02/20] Lisinopril TAB* [Prinivil TAB*] 10 mg PO DAILY 02/02/20 [History Confirmed 02/01] Nitroglycerin TAB 0.4 MG* 0.4 mg SL Q5M PRN 02/02/20 [History Confirmed 02/02/20 ] [place]-3 Fatty Acids (Nf) [Fish Oil (NF)] 1,000 mg PO DAILY 02/02/20 [History Confirmed 02/02/20] Rosuvastatin Calcium [Crestor] 40 mg PO DAILY 02/02/20 [History Confirmed ] Spironolactone TAB* [Aldactone TAB*] 25 mg PO DAILY 02/02/20 [History Confirmed 02/02/20] Ticagrelor* [Brilinta*] 90 mg PO BID 02/02/20 [History Confirmed 02/02/20] PMH/Surg Hx/FS Hx/Imm Hx Cardiovascular History: Reports: Hx Hypertension, Hx Myocardial Infarction - two History: Reports: Other Problems/Disorders - previous single nephrectomy Sensory History: Reports: Hx Contacts or Glasses Opthamlomology History: Reports: Hx Contacts or Glasses Neurological History: Denies: Hx Headaches, Hx Transient Ischemic Attacks (TIA) Psychiatric History: Denies: Hx Anxiety, Hx Depression - Surgical History Surgical History: Yes Surgery Procedure, Year, and Place: right nephrectomy - Family History Known Family History: Negative: Respiratory Disease - Social History Alcohol Use: Occasionally Hx Substance Use: No Substance Use Type: Reports: None Hx Tobacco Use: Yes Smoking Status (MU): Former Smoker Review of Systems Negative: Chest Pain Positive: Shortness Of Breath Negative: Vomiting, Nausea Negative: Syncope All Other Systems Reviewed And Are Negative: Yes Physical Exam - Summary Physical Exam Summary: Appearance: Pale and slightly diaphoretic male in no respiratory distress. Noted to be hypotensive and bradycardic. Skin: Warm, dry, no obvious rash Eyes: sclera anicteric, no conjunctival pallor HENT: mucous membranes moist, pharynx appears normal Neck: Supple, nontender Respiratory: Clear to auscultation, no signs of respiratory distress Cardiovascular: Normal S1, S2. No murmurs. Normal distal pulses in tibial and radial bilaterally. Noted to be bradycardic. Abdomen: Soft, nontender, normal active bowel sounds present Musculoskeletal: Normal, Strength/ROM Intact Neurological: A&Ox3, awake and alert, mentation is normal, speech is fluent and appropriate Psychiatric: affect is normal, does not appear anxious or depressed Triage Information Reviewed: Yes Vital Signs Reviewed: Yes Procedures - Sedation Patient Received Moderate/Deep Sedation with Procedure: No Diagnostics - Laboratory Result Diagrams: 02/02/20 06:45 02/02/20 06:45 Lab Statement: Any lab studies that have been ordered have been reviewed, and results considered in the medical decision making process. Re-Evaluation - Re-Evaluation First Eval Re-Evaluation Time: 06:41 - Cancel STEMI Comment: Dr. Romero discussed the care of the patient with Dr. Blanco, who agreed to come into the ED to evaluate. Second Eval Comment: Dr. Romero discussed the care of the patient with Dr. Delcid from [facility]. Dr. Delcid agreed to accept the patient as a transfer. Disposition - Course Course Of Treatment: 65 y/o M with hx coronary disease and MS x2 brought in by EMS c/o shortness of breath worse with exertion for 2 weeks. No hx heart rhythm problems or pacemaker. Physical exam reveals a pale and slightly diaphoretic male in no respiratory distress. Noted to be hypotensive and bradycardic. Bedside screening US did not show any obvious abnormalities. No sign of pulmonary edema or infiltrates. Patient given atropine. Patient signed out to Dr. Romero upon shift change pending labs, imaging, disposition. - Diagnoses Provider Diagnoses: Hypotension, Hyperkalemia, Acute renal failure, Acidemia, SOB (shortness of breath), Junctional bradycardia, Hyponatremia During the Visit The Following Alert/Code Occurred: STEMI - 0635 called by EMS in the field - Critical Care Time Critical Care Time: 30-74 min - 30 minutes CCT Critical Care Statement: Critical care time is provided exclusive of any time spent performing procedures. Discharge ED - Sign-Out/Discharge Documenting (check all that apply): Sign-Out Patient Signing out patient TO: Emory Romero - Discharge Plan Condition: Critical Disposition: TRANS HIGHER LVL OF CARE FAC Referrals: Orestes Quiñones DO [Primary Care Provider] - - Billing Disposition and Condition Condition: CRITICAL Disposition: Trans Higher Lvl of Care Fac - Attestation Statements Document Initiated by Scribe: Yes Documenting Scribe: Adamaris Call Provider For Whom Ikeibe is Documenting (Include Credential): Beto Hyde MD Scribe Attestation: Adamaris Ortiz, scribed for Beto Hyde MD on 02/04/20 at 0327. Scribe Documentation Reviewed: Yes Provider Attestation: The documentation as recorded by the Adamaris scherer accurately reflects the service I personally performed and the decisions made by me, Beto Hyde MD Status of Scribe Document: Viewed
--- OUTSIDE RECORDS SUMMARY | 2020-02-02 06:48 | XMS REPORT | Summary of Care ---
:1955 Author Organization [facility] Address [address] [facility] [place] [address] Care Team Providers Name Role Phone Zach Ha Primary Care Provider Reason for Visit Reason Comments Follow Up pt states he has Diarrhea back today, some SOB this morning after "running around ". Encounter Details Date Type Department Care Team Description 01/27/2020 Office Visit [facility] Linda Chavez, TERMINAL CLERK-Ryley Diarrhea, unspecified type (Primary Dx); Practice [address] Dyspnea, unspecified type; [address] [place] [address] [place] [address] [phone] Allergies No Known Allergiesdocumented as of this encounter (statuses as of 01/27/2020) Medications Medication Sig Dispensed Refills Start Date End Date Status nitroglycerin (NITROSTAT) Place 1 Tab 25 Tab 2 01/13/2018 Active 0.4 MG Sublingual SL Tab under tongue EVERY FIVE MINUTES NEEDED for chest pain. Cascade-3 Fatty Acids (FISH Take by mouth. 0 Active OIL) 1000 MG Oral Cap diclofenac (VOLTAREN) 1 % 2 g by Topical 2 Tube 0 07/27/2018 Active Transdermal route TWO TIMES GelIndications: Left DAILY NEEDED wrist pain (wrist pain). Aspirin (ASPIR-LOW) 81 MG Take 1 Tab by 30 Tab 5 09/01/2018 Active Oral Tab EC mouth DAILY. lisinopril (PRINIVIL, Take 1 tablet 90 Tab 3 07/05/2019 Active ZESTRIL) 10 MG Oral by mouth daily. TabIndications: Uncontrolled hypertension carvedilol (COREG) 25 MG Take 1 Tab by 180 Tab 1 07/06/2019 Active Oral TabIndications: mouth TWO TIMES Hypertension, unspecified DAILY WITH type MEALS. pantoprazole (PROTONIX) Take 1 tablet 90 Tab 1 08/23/2019 Active 40 MG Oral Tab by mouth daily. ECIndications: Gastroesophageal reflux disease, esophagitis presence not specified loratadine Take 1 tablet 90 Tab 1 08/23/2019 Active (CLARITIN,ALAVERT) 10 MG by mouth daily. Oral Tab ticagrelor (BRILINTA) 90 Take 1 Tab by 60 Tab 11 09/12/2019 Active MG Oral Tab mouth TWICE DAILY. Rosuvastatin Calcium Take 1 Tab by 30 Tab 5 10/26/2019 Active (CRESTOR) 40 MG Oral Tab mouth DAILY. ezetimibe (ZETIA) 10 MG Take 1 Tab by 30 Tab 5 10/26/2019 Active Oral Tab mouth DAILY. escitalopram (LEXAPRO) 10 Take 1 Tab by 180 Tab 0 11/22/2019 Active MG Oral TabIndications: mouth DAILY. Anxiety and depression spironolactone Take 1 Tab by 30 Tab 4 12/22/2019 Active (ALDACTONE) 25 MG Oral mouth DAILY. 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 was told probably was never working since Undescended right testicle Overview: was brought down by surgery. age 13 Heart attack Overview: 3 stents in rca ARABELLA (acute kidney injury) Overview: hypot[facility] induced at [facility] in[facility] 2017 Prior history of vaccination for Streptococcus pneumoniae History of colonoscopy Overview: february 2016. outside [place]. recommended 3 year follow up in february 2019. documented as of this encounter (statuses as of 01/27/2020) Immunizations Name Administration Dates Next Due Influenza (IM) Preservative Free 08/05/2019, 11/16/2017 TDAP Vaccine 11/16/2017 documented as of this encounter Social History Tobacco Use Types Packs/Day Years Used Date Former Smoker Quit: 11/03/1981 Smokeless Tobacco: Never Used Alcohol Use Drinks/Week oz/Week Comments No Social Isolation Answer Date Recorded In a typical week, how many times do you More than three times a week 2019 talk on the phone with family, friends, or neighbors? How often do you get together with friends More than three times a week 12/25 or relatives? How often do you attend hinduism or More than 4 times per year 12/26/2019 pentecostal services? Do you belong to any clubs or No 12/26/2019 organizations such as hinduism groups, unions, [employer] or athletic groups, or school groups? How often do you attend meetings of the Never 12/26/2019 clubs or organizations you belong to? Are you now , , , 12/26/2019 , never or living with a partner? Physical Activity Answer Date Recorded On average, how many days per week do you engage in moderate to 0 days 2019 strenuous exercise (like walking fast, running, jogging, dancing, swimming, biking, or other activities that cause a light or heavy sweat)? On average, how many minutes do you engage in exercise at this 0 min 2019 level? Stress Answer Date Recorded Do you feel stress - tense, restless, nervous, or anxious, Not at all 2019 or unable to sleep at night because your mind is troubled all the time - these days? Financial Resource Strain Answer Date Recorded How hard is it for you to pay for the very basics like Not hard at all 2019 food, housing, medical care, and heating? Intimate Partner Violence Answer Date Recorded Within the last year, have you been afraid of your partner or No 12/26/2019 ex-partner? Within the last year, have you been humiliated or emotionally No 12/26/2019 abused in other ways by your partner or ex-partner? Within the last year, have you been kicked, hit, slapped, or No 12/26/2019 otherwise physically hurt by your partner or ex-partner? Within the last year, have you been raped or forced to have any No 12/26/2019 kind of sexual activity by your partner or ex-partner? Food Insecurity Answer Date Recorded Within the past 12 months, you worried that your food would Never true 2019 run out before you got money to buy more. Within the past 12 months, the food you bought just didn't Never true 2019 last and you didn't have money to get more. Transportation Needs Answer Date Recorded In the past 12 months, has lack of transportation kept you from No 12/26/2019 medical appointments or from getting medications? In the past 12 months, has lack of transportation kept you from No 12/26/2019 meetings, work, or getting things needed for daily living? Sex Assigned at Date Recorded Not on file documented as of this encounter Last Filed Vital Signs Vital Sign Reading Time Taken Comments Blood Pressure 130/82 01/27/2020 10:08 AM EDT Pulse 72 01/27/2020 10:08 AM EDT Temperature 36.3 01/27/2020 10:08 AM EDT C (97.3 F) Respiratory Rate 14 01/27/2020 10:08 AM EDT Oxygen Saturation 98% 01/27/2020 11:23 AM EDT Inhaled Oxygen Concentration - - Weight - - Height 175.3 cm (5' 9") 01/27/2020 10:08 AM EDT Body Mass Index - - documented in this encounter Progress Notes Linda Chavez FNP-C - 01/27/2020 10:00 AM EDT PATIENT: Butch Prado : 1955 DATE OF SERVICE: 01/27/2020 CHIEF COMPLAINT: Chief Complaint Patient presents with ? Follow Up pt states he has Diarrhea back today, some SOB this morning after "running around ". Subjective HISTORY OF PRESENT ILLNESS: Butch Prado is a 65-y.o. male. Complaint of loose 1x this morning Had some spagetti last night and it upset his stomach BM have been irregualr since for the last few months Was nauseous and had diarrhea for 3 days earlier in the week Denies abdominal pain Denies vomiting and nausea Denies blood in his stool Normal urination ? Complaint of shortness of breath on exertion This morning and had one episode 1 week ago He was walking up the stairs and felt short of breath that lasted for less than 1 minute Relieved with rest Denies dizziness and chest pain -no recent use of nitro Denies shortness of breath at rest and at this time Denies fever Denies edema Denies cough Able to sleep inlying down without difficulty anxiety regarding coronavirus and if his heart is strong enough to withstand illness Worries about who will take care of his mother if her gets sick Able to sleep Denies panic attacks Taking lexapro for his anxiety Past Medical History: Diagnosis Date ? ARABELLA (acute kidney injury) (HCC) hypotension induced at [facility] 2017 ? Essential (primary) hypertension ? GERD (gastroesophageal reflux disease) ? 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 was told probably was never working since ? Heart attack (HCC) 2006, 2013 3 stents in rca ? History of colonoscopy february 2016. outside [place]. recommended 3 year follow up in february 2019. ? Hyperlipidemia ? Hypotension ? Prior history of vaccination for Streptococcus pneumoniae ? Rotator cuff disorder both sides. had surgeries for both ? Undescended right testicle was brought down by surgery. age 13 Family History Problem Relation Age of Onset ? Cancer Mother ? Diabetes Father Current Outpatient Medications Medication Sig ? Aspirin (ASPIR-LOW) 81 MG Oral Tab EC Take 1 Tab by mouth DAILY. ? carvedilol (COREG) 25 MG Oral Tab Take 1 Tab by mouth TWO TIMES DAILY WITH MEALS. ? diclofenac (VOLTAREN) 1 % Transdermal Gel 2 g by Topical route TWO TIMES DAILY NEEDED (wrist pain). ? escitalopram (LEXAPRO) 10 MG Oral Tab Take 1 Tab by mouth DAILY. ? ezetimibe (ZETIA) 10 MG Oral Tab Take 1 Tab by mouth DAILY. ? lisinopril (PRINIVIL, ZESTRIL) 10 MG Oral Tab Take 1 tablet by mouth daily. ? loratadine (CLARITIN,ALAVERT) 10 MG Oral Tab Take 1 tablet by mouth daily. ? nitroglycerin (NITROSTAT) 0.4 MG Sublingual SL Tab Place 1 Tab under tongue EVERY FIVE MINUTES NEEDED for chest pain. ? Cascade-3 Fatty Acids (FISH OIL) 1000 MG Oral Cap Take by mouth. ? pantoprazole (PROTONIX) 40 MG Oral Tab EC Take 1 tablet by mouth daily. ? Rosuvastatin Calcium (CRESTOR) 40 MG Oral Tab Take 1 Tab by mouth DAILY. ? spironolactone (ALDACTONE) 25 MG Oral Tab Take 1 Tab by mouth DAILY. ? ticagrelor (BRILINTA) 90 MG Oral Tab Take 1 Tab by mouth TWICE DAILY. No current facility-administered medications for this visit. No Known Allergies Social History Socioeconomic History ? Marital status: Single Spouse name: Not on file ? Number of children: Not on file ? Years of education: Not on file ? Highest education level: Not on file Occupational History ? Not on file Social Needs ? Financial resource strain: Not hard at all ? Food insecurity Worry: Never true Inability: Never true ? Transportation needs Medical: No Non-medical: No Tobacco Use ? Smoking status: Former Smoker Last attempt to quit: 11/03/1981 Years since quittin.2 ? Smokeless tobacco: Never Used Substance and Sexual Activity ? Alcohol use: No ? Drug use: No Comment: never IV ? Sexual activity: Never Lifestyle ? Physical activity Days per week: 0 days Minutes per session: 0 min ? Stress: Not at all Relationships ? Social connections Talks on phone: More than three times a week Gets together: More than three times a week Attends pentecostal service: More than 4 times per year Active member of club or organization: No Attends meetings of clubs or organizations: Never Relationship status: ? Intimate partner violence Fear of current or ex partner: No Emotionally abused: No Physically abused: No Forced sexual activity: No Other Topics Concern ? Back Care Not Asked ? Bike Helmet Not Asked ? Blood Transfusions Not Asked ? Caffeine Concern Not Asked ? Exercise Not Asked ? Hobby Hazards Not Asked ? International Travel Not Asked ? Service Not Asked ? Occupational Exposure Not Asked ? Seat Belt Not Asked ? Self-Exams Not Asked ? Sleep Concern Not Asked ? Special Diet Not Asked ? Stress Concern Not Asked ? Weight Concern Not Asked Social History Narrative Looking for work Moved from [place], [place] In [place] worked at [employer] Helping his foster mother here 2 boys One lives in [place], the other in [place]. Has a hydifjuo-se-xlt in [place]. Currently has a fiance - 2020 REVIEW OF SYSTEMS: Review of Systems Constitutional: Negative for chills and fever. HENT: Negative for congestion and sore throat. Respiratory: Negative for cough. Cardiovascular: Negative for chest pain and palpitations. Gastrointestinal: Positive for diarrhea. Negative for abdominal pain, blood in stool, constipation, nausea and vomiting. Genitourinary: Negative for dysuria. Musculoskeletal: Negative for myalgias. Neurological: Negative for dizziness. Psychiatric/Behavioral: Negative for depression. The patient is nervous/anxious. Objective PHYSICAL EXAM: VITALS: BP 130/82 (BP Location: Left arm, Patient Position: Sitting) | Pulse 72 | Temp 97.3 F(36.3 C) | Resp 14 | Ht 5' 9" (1.753 m) | BMI 36.18 kg/m Body mass index is 36.18 kg/m. Physical Exam ASSESSMENT / IMPRESSION: ICD-9-CM ICD-10-CM 1. Diarrhea, unspecified type 787.91 R19.7 2. Dyspnea, unspecified type 786.09 R06.00 3. Anxiety 300.00 F41.9 Plan Discussed diarrhea that has resolved Recommend avoiding foods that irritate his GI system BRAT diet and fluids discussed anxiety about covid19 pandemic- discussed staying home and social distancing measures andavoiding infection. Reviewed s/s of coronavirus and when to seek testing and medical assistance Episode of shortness of breath resolved discussed possibility of cardiac rehabilitation which is hold at this time but could consider in the future. If symptoms do not improve or shortness of breat returns please return to clinic Follow-up as needed Author: SIA Dean 01/27/2020 11:18 documented in this encounter Plan of Treatment Date Type Specialty Care Team Description 04/23/2020 Office Visit Cardiology Severo Lei MD [address] [place] [address] [phone] Health Maintenance Due Date Last Done Comments CT Colonography 1955 Cologuard 1955 Colonoscopy 1955 Colorectal Cancer Screening 1955 FIT/FOBT 1955 Sigmoidoscopy 1955 PNEUMOCOCCAL 0-64 YRS (1 of 01/16/1962 1 - PPSV23) ZOSTER IMMUNIZATION SERIES 01/16/2006 (1 of 2) DEPRESSION SCREENING 07/12/2020 07/12/2019 DIABETES SCREENING 10/24/2020 10/24/2019, 09/10/2019, 08/22/2019, Additional history exists LIPID DISORDER SCREENING 10/26/2020 10/26/2019, 10/24/2019, 11/09/2017 DTaP/Tdap/Td Vaccines (2 - 11/16/2027 11/16/2017 Tdap) HEPATITIS C SCREENING Completed 12/02/2018 HIV SCREENING Completed 12/02/2018 INFLUENZA VACCINE Completed 08/05/2019, 11/16/2017 HEPATITIS A IMMUNIZATION Aged Out No longer eligible SERIES based on patient's age to complete this topic HPV IMMUNIZATION SERIES Aged Out No longer eligible based on patient's age to complete this topic MENINGOCOCCAL VACCINE IMM Aged Out No longer eligible based on patient's age to complete this topic documented as of this encounter Goals Goal Patient Goal Associated Recent Patient-Stated? Author Type Problems Progress Blood Pressure Blood Pressure 130/82 No Orestes Quiñones < 140/90 (01/27/2020 DO Ari 10:08 AM EDT) Note: This is an individualized treatment (blood pressure) goal for Butch Prado: Displayed above (on the left) is your goal for blood pressure control. Your most recent blood pressure is also shown above, on the right. You should try to achieve blood pressures that are lower than your goal listed above (on the left). Weight increase vs. 18 mo min CHF 0 (12/26/2019 2:04 PM EDT) Orestes Dooley DO (lbs) < 5 Note: This is an individualized treatment (congestive heart failure, CHF) goal for Butch Prado: Displayed above (on the right) is how many pounds you are in excess of your lowest weight over the past 18 months. Note that lower numbers are better. Excessive weight gain often indicates fluid reten tion and worsening heart failure. You should contact your doctor immediately if the above number is too high (above your goal, the number on the left). Depression screen (PHQ-9) total score < 5 Depression Orestes Dooley DO Note: This is an individualized treatment (depression) goal for Butch Prado: Displayed above is your goal for a depression screening (PHQ-9) score that would indicate good control of your depression. Weight loss vs. 18 mo Lifestyle 16 (12/26/2019 2:04 PM EDT) Orestes Dooley DO max (lbs) >= 10 Note: This is an individualized lifestyle goal for Butch Prado: Your body mass index (BMI) is more than 30. You should lose weight. A reasonable starting goal is to lose 10 pounds. Displayed above is how many pounds you have lost thus far towards your 10 pound weight loss goal. Consume a qj-htwav-jahc diet Lifestyle No Orestes Quiñones DO Note: This is an individualized lifestyle goal for Butch Prado: Please do not add additional salt to your food. Additional salt may lead to fluid retention and worsen your congestive heart failure. Keep a regular sleep schedule Lifestyle No Orestes Quiñones DO Note: This is an individualized lifestyle goal for Butch Prado: Please maintain a regular sleep schedule. This may help with some symptoms of depression. Take all prescribed medications as directed Self-management No Orestes Quiñones DO Note: This is an individualized self-management goal for Butch Prado: Please take all prescribed medications as directed. 1. Do not skip doses. If you cannot afford your medications, talk with your doctor. 2. Use a pill reminder system such as a pill box if needed. Your pharmacist can help you with this. 3. Contact your Pharmacy 5 days before your medication runs out. If you cannot take your medications for any reasons, talk with your doctor. 4. Please bring all of your medication bottles and inhalers (or a list of all your medications/inhalers) with you to every visit. Potential barriers to meeting all of your care plan goals will continue to be addressed on an ongoing basis. Check your weight daily Self-management No Orestes Quiñones DO Note: This is an individualized self-management goal for Butch Prado: Please check your weight daily. Refer to the accompanying CHF treatment goal and call your doctor immediately for further instructions on how to respond to unexpected weight gain. documented as of this encounter Implants Implanted Type Area Filenet Admin Device Shelf Model / Identifier Expiration Date Serial / Lot 2.75/40 Orsiro Stent - [id number] N/A: RCA / Implanted: Qty: 1 on 09/09/2019 by Viral Cline MD at [facility] / [id number] Orsiro Stent - [id number] N/A: RCA / Implanted: Qty: 1 on 09/09/2019 by Viral Cline MD at [facility] / [id number] documented as of this encounter Results Not on filedocumented in this encounter Visit Diagnoses Diagnosis Diarrhea, unspecified type Dyspnea, unspecified type Anxiety Anxiety state, unspecified documented in this encounter [phone] [facility] (Home) [place] [id number] documented as of this encounter Advance Directives Code Status Date Activated Date Inactivated Comments Full Code 09/09/2019 8:40 AM Does the patient have decision making capacity? Yes Order was discussed with: Patient I discussed all options and patient/surrogate requested and agreed to: Full Code
--- OUTSIDE RECORDS SUMMARY | 2020-02-02 06:48 | XMS REPORT | Summary of Care ---
:1955 Author Organization [facility] Address 1 [facility] [place] [address] Care Team Providers Name Role Phone Zach Ha Primary Care Provider Reason for Visit Reason Comments Abdominal Pain pt states 2 nights ago, after eating, he had an upset stomach. also states that a week ago he got winded going up the steps . Encounter Details Date Type Department Care Team Description 01/24/2020 Office Visit [place] Linda Jarrett, LIBRARY CLERK [employer]-[place] Diarrhea, unspecified type (Primary Dx); Practice [address] Dyspnea, unspecified type [address] [place], [place] [address] [place] [address] [phone] Allergies No Known Allergiesdocumented as of this encounter (statuses as of 01/25/2020) Medications Medication Sig Dispensed Refills Start Date End Date Status nitroglycerin (NITROSTAT) Place 1 Tab 25 Tab 2 01/13/2018 Active 0.4 MG Sublingual SL Tab under tongue EVERY FIVE MINUTES NEEDED for chest pain. [place]-3 Fatty Acids (FISH Take by mouth. 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 was told probably was never working since Undescended right testicle Overview: was brought down by surgery. age 13 Heart attack Overview: 3 stents in [facility]ca ARABELLA (acute kidney injury) Overview: hypotension induced at [facility] insep 2017 Prior history of vaccination for Streptococcus pneumoniae History of colonoscopy Overview: february 2016. outside [place]. recommended 3 year follow up in february 2019. documented as of this encounter (statuses as of 01/25/2020) Immunizations Name Administration Dates Next Due Influenza [...] or relatives? How often do you attend episcopal or More than 4 times per year 12/26/2019 faith services? Do you belong to any clubs or No 12/26/2019 organizations such as episcopal groups, unions, [employer] or athletic groups, or school groups? How [...] Sign Reading Time Taken Comments Blood Pressure 136/80 01/24/2020 11:05 AM EDT Pulse 71 01/24/2020 11:05 AM EDT Temperature 36.9 01/24/2020 11:05 AM EDT C (98.4 F) Respiratory Rate - - Oxygen Saturation 97% 01/24/2020 11:05 AM EDT Inhaled Oxygen Concentration - - Weight - - Height 175.3 cm (5' 9") 01/24/2020 11:05 AM EDT Body Mass Index - - documented in this encounter Progress Notes Linda Chavez FNP-C - 01/24/2020 11:00 AM EDT PATIENT: Butch Prado : 1955 DATE OF SERVICE: 01/24/2020 CHIEF COMPLAINT: Chief Complaint Patient presents with ? Abdominal Pain pt states 2 nights ago, after eating, he had an upset stomach. also states that a week ago he got winded going up the steps . Subjective HISTORY OF PRESENT ILLNESS: Butch Prado is a 65-y.o. male. Butch has complaint of nausea and intermittent diarrhea Started 1 week ago Having partly formed and diarrheal stools approximately no more than twice a day Stomach feels unsettled ,Stomach is gurgling Denies abdominal pain Denies vomiting Denies blood in his stool Has been able to eat and drink his normal meals Using Pepto-Bismol with some relief Normal BM this morning Normal urination Complaint of shortness of breath on exertion one episode 1 week ago He was walking up the stairs and felt short of breath Resting relieves his shortness of breath Denies dizziness chest pain at the time of the incident Denies shortness of breath at rest and at this time Denies fever Denies edema Denies cough Past Medical History: Diagnosis Date ? ARABELLA (acute kidney injury) (HCC) hypotension induced at [facility] insep 2017 ? Essential (primary) hypertension ? GERD (gastroesophageal reflux disease) ? 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 was told probably was never working since ? Heart attack (HCC) 2006, 2013 3 stents in [place] ? History of colonoscopy february 2016. outside [place]. recommended 3 year follow up in february [...] FIVE MINUTES NEEDED for chest pain. ? 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 Has a ubxezycs-qs-ddq in [place]. Currently has a fiance - 2020 REVIEW OF SYSTEMS: Review of Systems Constitutional: Negative for fever and malaise/fatigue. HENT: Negative for congestion and sore throat. Eyes: Negative for pain. Respiratory: Negative for cough, shortness of breath and wheezing. Cardiovascular: Negative for chest pain and palpitations. Gastrointestinal: Positive for diarrhea and nausea. Negative for abdominal pain and vomiting. Genitourinary: Negative for dysuria. Musculoskeletal: Negative for myalgias. Skin: Negative for rash. Neurological: Negative for headaches. Psychiatric/Behavioral: Negative for depression. Objective PHYSICAL EXAM: VITALS: BP 136/80 (BP Location: Left arm, Patient Position: Sitting) | Pulse 71 | Temp 98.4 F(36.9 C) | Ht 5' 9" (1.753 m) | SpO2 97% | BMI 36.18 kg/m Body mass index is 36.18 kg/m. Physical Exam Vitals signs and nursing note reviewed. Constitutional: General: He is not in acute distress. Appearance: He is not ill-appearing. HENT: Head: Normocephalic. Right Ear: Tympanic membrane normal. Left Ear: Tympanic membrane normal. Nose: Nose normal. Mouth/Throat: Mouth: Mucous membranes are moist. Eyes: Conjunctiva/sclera: Conjunctivae normal. Neck: Musculoskeletal: Normal range of motion. Cardiovascular: Rate and Rhythm: Normal rate and regular rhythm. Heart sounds: Normal heart sounds. No murmur. Pulmonary: Effort: Pulmonary effort is normal. Breath sounds: Normal breath sounds. Abdominal: General: Bowel sounds are normal. There is no distension. Palpations: There is no mass. Tenderness: There is no abdominal tenderness. Musculoskeletal: General: No swelling. Skin: General: Skin is warm. Capillary Refill: Capillary refill takes less than 2 seconds. Findings: No rash. Neurological: Mental Status: He is alert and oriented to person, place, and time. Gait: Gait normal. Psychiatric: Mood and Affect: Mood normal. ASSESSMENT / IMPRESSION: ICD-9-CM ICD-10-CM 1. Diarrhea, unspecified type 787.91 R19.7 2. Dyspnea, unspecified type 786.09 R06.00 Plan Discussed diarrhea and risk for dehydration diarrhea we are resolving at this time continue to keep well-hydrated and advance diet as tolerated Can use Pepto-Bismol as needed sparingly Episode of shortness of breath resolved If symptoms do not improve or shortness of breat returns please return to clinic Follow-up as needed Author: SIA Dean 01/25/2020 10:30 documented in this encounter Plan of Treatment Date Type Specialty Care Team Description 01/27/2020 Office Visit Family Practice Linda Chavez FNP-C [address] [place] [address] [phone] 04/23/2020 Office Visit Cardiology Severo Lei MD [address] [place] [address] [phone] Health Maintenance Due Date Last Done Comments [...] Type Problems Progress Blood Pressure Blood Pressure 136/80 No Orestes Quiñones < 140/90 (01/24/2020 J, DO 11:05 AM EDT) Note: This is an individualized [...] min CHF 0 (12/26/2019 2:04 PM EDT) No Orestes Quiñones J, DO (lbs) < 5 Note: This is [...] 10 pound weight loss goal. Consume a fb-qciqx-vmhz diet Lifestyle No Orestse Quiñones DO Note: This is an individualized lifestyle goal for Butch Prado: Please do not add additional salt to your food. Additional salt may lead to fluid retention and worsen your congestive heart failure. Keep a regular sleep schedule Lifestyle Orestes Dooley DO Note: This is an individualized lifestyle goal for Butch Prado: Please maintain a regular sleep schedule. This may help with some symptoms of depression. Take all prescribed medications as directed Self-management Orestes Dooley DO Note: This is an individualized self-management [...] ongoing basis. Check your weight daily Self-management Orestes Dooley DO Note: This is an individualized self-management goal for Butch Prado: Please check your weight daily. Refer to the accompanying CHF treatment goal and call your doctor immediately for further instructions on how to respond to unexpected weight gain. documented as of this encounter Implants Implanted Type Area Energy Engineer Device Shelf Model / Identifier Expiration Date Serial / Lot 2. Orsiro Stent - [id number] N/A: RCA / Implanted: Qty: 1 on 09/09/2019 by Viral Cline MD at [facility] / [id number] Orsiro Stent - [id number] N/A: RCA / Implanted: Qty: 1 on 09/09/2019 by Viral Cline MD at [facility] / [id number] documented as of this encounter Results Not on filedocumented in this encounter Visit Diagnoses Diagnosis Diarrhea, unspecified type Dyspnea, unspecified type documented in this encounter (Home) [place] [address] documented as of this encounter Advance Directives Code Status Date Activated Date Inactivated Comments Full Code 09/09/2019 8:40 AM Does the patient have decision making capacity? Yes Order was discussed with: Patient I discussed all options and patient/surrogate requested and agreed to: Full Code
--- OUTSIDE RECORDS SUMMARY | 2020-02-02 06:48 | XMS REPORT | Summary of Care ---
:1955 Author Organization [facility] Address [address] [place] [address] Care Team Providers Name Role Phone Zach Ha Primary Care Provider Reason for Visit Reason Comments New Patient Pt presents to establish care from Dr Quiñones Encounter Details Date Type Department Care Team Description 12/26/2019 Office Visit [place] [facility] Zach Ha, Routine general Medicine PA medical examination at [address] [facility] [address] [facility] [place] [address] (Primary Dx) [phone] Allergies No Known Allergiesdocumented as of this encounter (statuses as of 12/26/2019) Medications Medication Sig Dispensed Refills Start Date End Date Status nitroglycerin (NITROSTAT) Place 1 Tab 25 Tab 2 01/13/2018 Active 0.4 MG Sublingual SL Tab under tongue EVERY FIVE MINUTES NEEDED for chest pain. [place]-3 Fatty Acids (FISH Take by mouth. 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 was told probably was never working since Undescended right testicle Overview: was brought down by surgery. age 13 Heart attack Overview: 3 stents in rca ARABELLA (acute kidney injury) Overview: hypotension induced at [place] insep 2017 Prior history of vaccination for Streptococcus pneumoniae History of colonoscopy Overview: february 2016. outside [place]. recommended 3 year follow up in february 2019. documented as of this encounter (statuses as of 12/26/2019) Immunizations Name Administration Dates Next Due Influenza [...] or relatives? How often do you attend mosque or More than 4 times per year 12/26/2019 islam services? Do you belong to any clubs or No 12/26/2019 organizations such as mosque groups, unions, fraternal or athletic groups, or school groups? How [...] Sign Reading Time Taken Comments Blood Pressure 129/72 12/26/2019 2:04 PM EDT Pulse 61 12/26/2019 2:04 PM EDT Temperature 36.3 12/26/2019 2:04 PM EDT C (97.3 F) Respiratory Rate - - Oxygen Saturation 97% 12/26/2019 2:04 PM EDT Inhaled Oxygen Concentration - - Weight 111.1 kg (245 lb) 12/26/2019 2:04 PM EDT Height 175.3 cm (5' 9") 12/26/2019 2:04 PM EDT Body Mass Index 36.18 12/26/2019 2:04 PM EDT documented in this encounter Progress Notes Zach Ha, [place] - 12/26/2019 2:00 PM EDT PATIENT: Butch Prado : 1955 DATE OF SERVICE: 12/26/2019 CHIEF COMPLAINT: Chief Complaint Patient presents with ? New Patient Pt presents to establish care from Dr Quiñones Subjective HISTORY OF PRESENT ILLNESS: Butch Prado is a 64-y.o. male. Butch presents to the office to establish with me, former Dr. Quiñones patient. He states that today he is doing well and has no questions or concerns for today. He is currently taking all medications as prescribed without any notable side effects. Full history and physical was completed today, see below for pertinent social history, ROS for pertinent negatives. Past Medical History: Diagnosis Date ? ARABELLA (acute kidney injury) (HCC) hypotension induced at [place] insep 2016 ? Essential (primary) hypertension ? GERD (gastroesophageal reflux disease) ? 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 was told probably was never working since ? Heart attack (HCC) 2006, 2013 3 stents in [place] ? History of colonoscopy february 2016. outside [place]. recommended 3 year follow up in february [...] FIVE MINUTES NEEDED for chest pain. ? [place]-3 Fatty Acids (FISH OIL) 1000 MG Oral [...] Last attempt to quit: 11/03/1981 Years since quittin.1 ? Smokeless tobacco: Never Used Substance and [...] More than three times a week Attends islam service: More than 4 times per year [...] History Narrative Looking for work [place]oved [place], [place] worked at [employer] Helping his foster mother here 2 boys One lives in [place], the other in [place]. Has a hlfeurre-dl-ttj in [place]. Currently has a [employer] - 2019 REVIEW OF SYSTEMS: Review of Systems Constitutional: Negative for chills, fever, malaise/fatigue and weight loss. HENT: Negative for congestion, ear pain, hearing loss, sore throat and tinnitus. Eyes: Negative for blurred vision, double vision and photophobia. Respiratory: Negative for cough, sputum production and shortness of breath. Cardiovascular: Negative for chest pain, palpitations, orthopnea and leg swelling. Gastrointestinal: Negative for abdominal pain, blood in stool, diarrhea and heartburn. Genitourinary: Negative for dysuria, flank pain and hematuria. Musculoskeletal: Negative for falls, joint pain and myalgias. Skin: Negative for itching and rash. Neurological: Negative for dizziness, sensory change, speech change, loss of consciousness and weakness. Endo/Heme/Allergies: Negative for environmental allergies and polydipsia. Does not bruise/bleed easily. Psychiatric/Behavioral: Negative for depression, substance abuse and suicidal ideas. The patient is not nervous/anxious. Objective PHYSICAL EXAM: VITALS: BP 129/72 (BP Location: Left arm, Patient Position: Sitting) | Pulse 61 | Temp 97.3 F(36.3 C) (Tympanic) | Ht 5' 9" (1.753 m) | Wt 245 lb (111.1 kg) | SpO2 97% | BMI 36.18 kg/m Body mass index is 36.18 kg/m. Physical Exam Vitals signs and nursing note reviewed. Constitutional: General: He is not in acute distress. Appearance: He is not ill-appearing or diaphoretic. HENT: Head: Normocephalic and atraumatic. Right Ear: Tympanic membrane, ear canal and external ear normal. Left Ear: Tympanic membrane, ear canal and external ear normal. Nose: No congestion or rhinorrhea. Mouth/Throat: Mouth: Mucous membranes are moist. Pharynx: No oropharyngeal exudate or posterior oropharyngeal erythema. Eyes: General: Right eye: No discharge. Left eye: No discharge. Extraocular Movements: Extraocular movements intact. Conjunctiva/sclera: Conjunctivae normal. Pupils: Pupils are equal, round, and reactive to light. Neck: Musculoskeletal: Normal range of motion and neck supple. No muscular tenderness. Cardiovascular: Rate and Rhythm: Normal rate and regular rhythm. Pulses: Normal pulses. Heart sounds: No murmur. No friction rub. No gallop. Pulmonary: Effort: No respiratory distress. Breath sounds: No wheezing, rhonchi or rales. Abdominal: General: Abdomen is flat. Bowel sounds are normal. Palpations: Abdomen is soft. Tenderness: There is no abdominal tenderness. There is no right CVA tenderness, left CVA tenderness, guarding or rebound. Musculoskeletal: Normal range of motion. General: No swelling or tenderness. Lymphadenopathy: Cervical: No cervical adenopathy. Skin: General: Skin is warm and dry. Capillary Refill: Capillary refill takes less than 2 seconds. Findings: No lesion or rash. Neurological: General: No focal deficit present. Mental Status: He is alert and oriented to person, place, and time. Cranial Nerves: No cranial nerve deficit. Motor: No weakness. Coordination: Coordination normal. Deep Tendon Reflexes: Reflexes normal. Psychiatric: Mood and Affect: Mood normal. Behavior: Behavior normal. Thought Content: Thought content normal. ASSESSMENT / IMPRESSION: ICD-9-CM ICD-10-CM 1. Routine general medical examination at a health care facility V70.0 Z00.00 Butch is a 64 years old male who presents to establish, currently no complaints that this time. He should continue to follow up with Dr. Lei on a routine basis, or sooner as needed. He has no questions or concerns at this time. He states that he will consider getting a colonoscopy within the year. Author: GER[place] Douglas 12/26/2019 16:31 documented in this encounter Plan of Treatment Date Type Specialty Care Team Description 04/23/2020 Office Visit Cardiology Severo Lei MD [address] [place] [address] [phone] Health Maintenance Due Date Last Done Comments PNEUMOCOCCAL 0-64 YRS (1 of [birth year]16/1962 1 - PPSV23) Colonoscopy 01/16/2006 ZOSTER IMMUNIZATION SERIES 01/16/2006 (1 of 2) [...] Type Problems Progress Blood Pressure Blood Pressure 129/72 No Orestes Quiñones < 140/90 (12/26/2019 J, DO 2:04 PM EDT) Note: This is an individualized treatment [...] screen (PHQ-9) total score < 5 Depression No Orestes Quiñones DO Note: This is an individualized treatment (depression) goal for Butch Prado: Displayed above is your goal for a depression screening (PHQ-9) score that would indicate good control of your depression. Weight loss vs. 18 mo Lifestyle 16 (12/26/2019 2:04 PM EDT) No Orestes Quiñones DO max (lbs) >= 10 Note: This is an individualized lifestyle goal for Butch Prado: Your body mass index (BMI) is more than 30. You should lose weight. A reasonable starting goal is to lose 10 pounds. Displayed above is how many pounds you have lost thus far towards your 10 pound weight loss goal. Consume a wm-xswdr-qgyh diet Lifestyle No Orestes Quiñones DO Note: [...] your weight daily Self-management No Orestes Quiñones J, DO Note: This is an individualized self-management goal for Butch Prado: Please check your weight daily. Refer to the accompanying CHF treatment goal and call your doctor immediately for further instructions on how to respond to unexpected weight gain. documented as of this encounter Implants Implanted Type Area Engineer Chief Device Shelf Model / Identifier Expiration Date Serial / Lot 2 Orsiro Stent - [id number] N/A: RCA / Implanted: Qty: 1 on 09/09/2019 by Viral Cline MD at [facility] / [id number] Orsiro Stent - [id number] N/A: RCA / Implanted: Qty: 1 on 09/09/2019 by Viral Cline MD at [facility] / [id number] documented as of this encounter Results Not on filedocumented in this encounter Visit Diagnoses Diagnosis Routine general medical examination at a health care facility documented in this encounter documented as of this encounter Advance Directives Code Status Date Activated Date Inactivated Comments Full Code 09/09/2019 8:40 AM Does the patient have decision making capacity? Yes Order was discussed with: Patient I discussed all options and patient/surrogate requested and agreed to: Full Code
[2020-02-02] MEDS ORDERED: Atropine SYRINGE* 0.1 MG/ML 10 ML SYRINGE (1 MG) IV PUSH ONE (06:52)
[2020-02-02] MEDS ORDERED: Atropine SYRINGE* 0.1 MG/ML 10 ML SYRINGE (1 MG) ONE (06:54)
[2020-02-02 07:12] LABS: ABS Monocytes 0.6 10^3/ul (0-0.8); Eosinophil % 0.1 %; Hematocrit 30 % (42-52); Hemoglobin 9.9 g/dL (14.0-18.0); Lymphocyte % 8.9 %; Mean Corpuscular HGB Conc 33 g/dL (31-36); Mean Corpuscular Hemoglobin 29 pg (27-31); Mean Corpuscular Volume 89 fL (80-94); Mean Platelet Volume 8.7 fL (7.4-10.4); Platelet Count 202 10^3/uL (150-450); Red Blood Count 3.37 10^6 /uL (4.18-5.48); Red Cell Distribution Width 14 % (10-15); White Blood Count 11.6 10^3/uL (3.5-10.8)
[2020-02-02] MEDS: NS 0.9% 1000 ML** 2,000 ML IV ONE (07:20)
[2020-02-02 07:22] LABS: INR 1.07 (0.82-1.09)
--- NOTE | 2020-02-02 07:24 | ED ---
Progress - Progress Note Progress Note: Patient is received as a sign out from Dr. Hyde at 0700 on 02/02/2020 shift change pending labs, imaging, and disposition. Home Medications Medication Instructions Recorded Confirmed Type Aspirin [Aspirin EC] 81 mg PO DAILY 11/12/18 11/12/18 History Atorvastatin* [Lipitor 80 MG*] 80 mg PO BEDTIME 11/12/18 11/12/18 History Carvedilol [Coreg] 12.5 mg PO BID 11/12/18 11/12/18 History Loratadine 10 mg PO BEDTIME 11/12/18 11/12/18 History Pantoprazole TAB * [Protonix TAB*] 40 mg PO DAILY 11/12/18 11/12/18 History Ondansetron TAB* [Zofran 4 MG Tab*] 4 mg PO Q6H PRN 5 Days #20 tab 11/14/18 Rx 65 y/o M with a hx of MD x2 and hyperlipidemia had 2 weeks of SOB, fatigue, diarrhea. Patient denies cough, fever, pain. Patient saw Dr. Hyde earlier and was observed to have a junctional rhythm. He received 1 mg of atropine. Patient was later received as sign-out by Dr. Ortiz pending further workup. Patient was observed to be bradycardic and hypotensive. Dr. Ortiz discussed the care of the patient with Dr. Blanco at 0710, who will come to ED to evaluate. Patients labs show renal failure and he will require transfer to [facility] in [place] for dialysis. Patient received fluids, 1 g of calcium gluconate, 10 units of IV insulin, 25 gm of IV dextrose, 10 mg of albuterol, 250 mL norepinephrine, and a bicarbonate drip. Patient was started on transcutaneous pacing at 80 BPM and is at 40 milliamps. Patient's case was discussed with Dr. Delcid from [facility], Dr. Delcid accepts the patient for transfer. CXR IMPRESSION: NO ACTIVE CARDIOPULMONARY DISEASE. 0832 - Dr. Covington in ED, patient's case discussed. Patient's disposition remains transfer to [facility]. 0838 - Patient's BP is noted to be downtrending, levophed ordered. ABG results were conveyed to Dr. Delcid, who asks for intubation of the patient. Patient was intubated. Re-Evaluation - Re-Evaluation First Eval Re-Evaluation Time: 07:10 Comment: Dr. Ortiz discussed the care of the patient with Dr. Blanco, who agreed to come into the ED to evaluate. Second Eval Comment: Dr. Ortiz discussed the care of the patient with Dr. Delcid from [facility]. Dr. Delcid agreed to accept the patient as a transfer. Course/Dx - Course Course Of Treatment: 65 y/o M with a hx of MD x2 and hyperlipidemia had 2 weeks of SOB, fatigue, diarrhea. Patient denies cough, fever, pain. Patient saw Dr. Hyde earlier and was observed to have a junctional rhythm. He received 1 mg of atropine. Patient was later received as sign-out by Dr. Ortiz pending further workup. Patient was observed to be bradycardic and hypotensive. Dr. Ortiz discussed the care of the patient with Dr. Blanco at 0710, who will come to ED to evaluate. Patients labs show renal failure and he will require transfer to [facility] in [place] for dialysis. Patient received fluids, 1 g of calcium gluconate, 10 units of IV insulin, 25 gm of IV dextrose, 10 mg of albuterol, 250 mL norepinephrine, and 1000 mL of sodium bicarbonate. Patient currently has a heart rate of 80 BPM and is at 40 milliamps. Patient's case was discussed with Dr. Delcid from [facility], Dr. Delcid accepts the patient for transfer. CXR IMPRESSION: NO ACTIVE CARDIOPULMONARY DISEASE. 0832 - Dr. Covington in ED, patient's case discussed. Patient's disposition remains transfer to [facility]. 0838 - Patient's BP is noted to be downtrending, levophed ordered. ABG results were conveyed to Dr. Delcid, who asks for intubation of the patient. Patient was intubated. - Diagnoses Provider Diagnoses: Hypotension, Hyperkalemia, Acute renal failure, Acidemia, SOB (shortness of breath), Junctional bradycardia, Hyponatremia - Critical Care Time Critical Care Time: 75-104 min - 90 minutes critical care time. Critical Care Statement: Critical care time is provided exclusive of any time spent performing procedures. Discharge ED - Sign-Out/Discharge Documenting (check all that apply): Patient Departure - Patient transferred to [facility]. - Discharge Plan Condition: Critical Disposition: TRANS HIGHER LVL OF CARE FAC Referrals: Orestes Quiñones DO [Primary Care Provider] - - Billing Disposition and Condition Condition: CRITICAL Disposition: Trans Higher Lvl of Care Fac - Attestation Statements Document Initiated by Ravindrae: Yes Documenting Scribe: MORENITA SONI Provider For Whom Niesha is Documenting (Include Credential): ABDOUL ORTIZ MD Scribe Attestation: MORENITA Ortiz, scribed for ABDOUL ORTIZ MD on 02/02/20 at 0912. Scribe Documentation Reviewed: Yes Provider Attestation: The documentation as recorded by the niesha, MORENITA SONI accurately reflects the service I personally performed and the decisions made by ABDOUL gil MD Status of Scribe Document: Viewed Procedures - Procedure Summary Procedure Summary: Patient was intubated: 100 mg rocuronium and 20 mg etomidate administered, 7.5 orotracheal tube was used with a Prabha. After intubation, bilateral breath sounds obtained and end-tidal CO2 confirmed tube placement, no complications during procedure. - Sedation Patient Received Moderate/Deep Sedation with Procedure: No - Intubation Intubation Method: orotracheal Tube Size (cm): 7.5 Breath Sounds after Intubation: equal Intubation Complications: no complications
[2020-02-02 07:26] LABS: ALT 14 U/L (7-52); AST 10 U/L (13-39); Albumin 4.2 g/dL (3.2-5.2); Albumin/Globulin Ratio 1.1 (1-3); Alkaline Phosphatase 130 U/L (34-104); C Reactive Protein 1.32 mg/L (<8.01); Calcium 9.3 mg/dL (8.6-10.3); Chloride 107 mmol/L (101-111); Creatine Kinase 47 U/L (10-223); EGFR African American 4.6 (>60); EGFR Non-African American 3.8 (>60); Globulin 3.7 g/dL (2-4); Glucose 107 mg/dL (70-100); Magnesium 2.6 mg/dL (1.9-2.7); Sodium 127 mmol/L (135-145); Total Protein 7.9 g/dL (6.4-8.9)
[2020-02-02] MEDS ORDERED: CALCIUM GLUCONATE 1GM/50ML NS 1 GM/50 ML BAG IV ONE (07:33)
[2020-02-02 07:34] LABS: Potassium 8.8 mmol/L (3.5-5.0)
[2020-02-02] MEDS ORDERED: Albuterol 2.5 MG/3 ML NEB.SOL* (0.083%) INH ONE (07:34)
[2020-02-02] MEDS ORDERED: Insulin REGULAR(*) 1 UNITS UNIT IV PUSH ONE (07:34)
[2020-02-02] MEDS ORDERED: Dextrose 50% VIAL 50 ml IV ONE (07:35)
[2020-02-02 07:41] LABS: BUN/Creatinine Ratio 11.8 (8-20); Blood Urea Nitrogen 156 mg/dL (6-24)
[2020-02-02 07:42] LABS: CO2 Carbon Dioxide < 7 mmol/L (22-32)
[2020-02-02] MEDS ORDERED: Dextrose 50% Syringe 50 ML* 25 GM/50 ML SYRINGE ONE (07:47)
[2020-02-02] MEDS ORDERED: Dextrose 50% Syringe 50 ML* 25 GM/50 ML SYRINGE IV PUSH ONE (07:49)
[2020-02-02] MEDS ORDERED: Sodium Bicarbonate 8.4% IV* 150 MEQ in D5W 1000 ML BAG* 850 ML IV ONE (08:19)
[2020-02-02 08:21] LABS: TSH (Thyroid Stimulating Horm) 1.11 mcIU/mL (0.34-5.60)
[2020-02-02] MEDS ORDERED: Rocuronium* 10 MG/ML VIAL ONE ×2 (08:45→08:53)
[2020-02-02] MEDS ORDERED: Succinylcholine* 20 MG/ML 10 ML VIAL ONE (08:46)
[2020-02-02] MEDS ORDERED: Norepinephrine 16MCG/ML IVPRE* 4,000 MCG/250 ML BAG IV SCH (09:00)
[2020-02-02 09:26] LABS: Urine Appearance Turbid; Urine Bilirubin Negative (Negative); Urine Blood Negative (Negative); Urine Color Amber; Urine Glucose Negative (Negative); Urine Ketones Negative (Negative); Urine Nitrite Negative (Negative); Urine Protein Negative (Negative); Urine Urobilinogen Negative (Negative)
[2020-02-02 09:32] LABS: Urine Bacteria Absent (Absent); Urine Red Blood Cell 1+(3-5/hpf) (Absent); Urine Squamous Epithelial Cell Present (Absent); Urine White Blood Cell Trace(0-5/hpf) (Absent)
[2020-02-02 10:20] VITALS: BP 85/37
== END 2020-02-02 08:56 | disposition short-term general hospital (02) ==
LOC: ED 06:37
DX: I95.9 Hypotension, unspecified (principal); E87.5 Hyperkalemia; R06.02 Shortness of breath; E78.5 Hyperlipidemia, unspecified; I25.2 Old myocardial infarction; E87.1 Hypo-osmolality and hyponatremia; N17.9 Acute kidney failure, unspecified; R53.83 Other fatigue; R19.7 Diarrhea, unspecified; R00.1 Bradycardia, unspecified; R94.31 Abnormal electrocardiogram [ECG] [EKG]; Z79.899 Other long term (current) drug therapy; Z79.82 Long term (current) use of aspirin
CPT/HCPCS: 36415; 71045; 80053; 81003; 81015; 82550; 82803; 83735; 83880; 84443; 84484; 85025; 85610; 86140; 87086; 87635; 93005; 96361; 96374; 96375; 99285; J0330; J0461; J0610